=== PATIENT | male | born 1935 | race Caucasian/White ===

== ENCOUNTER 2016-12-23 11:00 | Day surgery (SDC) | payer MEDICARE ==
[~2016-12-23 11:00] MED LIST: CLINDAMYCIN-D5W 900 MG/50 ML*** 900 MG/50 ML BAG IV SCH; KEFZOL 1 GM ONE; Lactated Ringers 0 ML IV ONE; Lactated Ringers 1,000 ML IV ONE; Lactated Ringers 1,000 ML IV SCH; Sensorcaine 0.25% 10 ML ONE
[2016-12-23] MEDS ORDERED: DILAUDID 2 MG INJECTION IV ONE (11:01)
[2016-12-23] MEDS ORDERED: Ephedrine Sulfate 50 MG/ML IV ONE (11:01)
[2016-12-23] MEDS ORDERED: DIPRIVAN 200 MG/20 ML IV ONE (11:01)
[2016-12-23] MEDS ORDERED: TORAdol 30 mg Injection IV ONE (11:01)
[2016-12-23] MEDS ORDERED: BRIDION 200MG/2ML IV ONE (11:01)
[2016-12-23] MEDS ORDERED: SUBLIMAZE 100 MCG/2 ML IV ONE (11:01)
[2016-12-23] MEDS ORDERED: Zemuron 100 MG/10 ML IV ONE (11:01)
[2016-12-23] MEDS ORDERED: Decadron 4 MG INJ IV ONE (11:01)
[2016-12-23] MEDS ORDERED: Zofran 4 MG/2 ML VIAL IV ONE (11:01)
--- NOTE | 2016-12-23 11:22 | HP ---
DATE OF SURGERY: 12/23/2016 ADMISSION DIAGNOSIS: Right inguinal hernia. ANTICIPATED PROCEDURE: Large right inguinal hernia repair. HISTORY OF PRESENT ILLNESS: The patient has a very large symptomatic right inguinal hernia and presents for repair. PAST MEDICAL HISTORY: ALLERGIES: NONE. MEDICATIONS: Amlodipine, rosuvastatin, metoprolol, valsartan. PAST SURGICAL HISTORY: None recent. SOCIAL HISTORY: Negative. FAMILY HISTORY: Negative. REVIEW OF SYSTEMS: Hyperlipidemia, hypertension, coronary artery disease. PHYSICAL EXAMINATION: VITAL SIGNS: Normal. CHEST: Clear. COR: Regular. ABDOMEN: Right inguinal hernia large. IMPRESSION: Large right inguinal hernia. PLAN: Repair.
[2016-12-23] MEDS ORDERED: SUBLIMAZE 100 MCG/2 ML ONE (14:51)
[2016-12-23 17:00] VITALS: O2SAT 92
[2016-12-23 17:02] VITALS: BP 110/71; PULSE 67
--- NOTE | 2016-12-24 12:20 | OP ---
SURGERY DATE/TIME: 12/23/2016 1345 PREOPERATIVE DIAGNOSIS: Massive right inguinal hernia. POSTOPERATIVE DIAGNOSIS: Massive right inguinal hernia. PROCEDURE: Right inguinal herniorrhaphy with mesh. SURGEON: Nate Jara M.D. ANESTHESIA: General. COMPLICATIONS: None. CONDITION: Stable. INDICATION: A symptomatic large right inguinal hernia. DESCRIPTION OF PROCEDURE: Taken to surgery. General anesthetic. Routine prep and drape. Curvilinear incision. 0.25% Marcaine. External oblique opened. 14 inches of small bowel was present. It was reduced back to the abdomen with Trendelenburg position. High ligation of the sac with 0 Prolene. Portions of the sac were removed as possible. It was taken off the testicle. There was a medium sized hydrocele which was opened up and decompressed. The cord was satisfactory. The cord had been skeletonized. The floor was repaired in a Koko's-like fashion with a preformed mesh. The internal ring was one clamp tight. Hemostasis satisfactory. Repair appeared satisfactory. Cord laid back in position. Testicle was in the scrotum. External oblique closed with 0 Vicryl. Fede fascia closed with 2-0 Vicryl. Skin closed with anthony. Sterile dressing applied. The patient tolerated the procedure satisfactorily.
== END 2016-12-23 16:55 | disposition home or self-care (01) ==
LOC: SDC 11:00
PROVIDERS: ATTEND Surgery
PROC: 0YU50JZ Supplement Right Inguinal Region with Synthetic Substitute, Open Approach (ICD-10-PCS; principal; 2016-12-23)
DX: K40.90 Unilateral inguinal hernia, without obstruction or gangrene, not specified as recurrent (principal); E78.5 Hyperlipidemia, unspecified; I10 Essential (primary) hypertension; I25.10 Atherosclerotic heart disease of native coronary artery without angina pectoris; Z79.899 Other long term (current) drug therapy
CPT/HCPCS: 00830; 36415; 64425; 76942; 99100; J0690; J1100; J1170; J1885; J2405; J2704; J3010

== ENCOUNTER 2016-12-24 21:01 | Emergency (ER) | payer MEDICARE ==
[2016-12-24 21:10] VITALS: PULSE 72
--- NOTE | 2016-12-24 21:33 | ERPHSYRPT ---
- History of Present Illness Time Seen by Provider: 12/24/16 21:09 Source: patient, family (daughter who is cardiac nurse in [place]) Patient Subjective Stated Complaint: had hernia repair on was concerned he could feel it bleeding out and thought it had opened Triage Nursing Assessment: pt alert nad orientedx3, skin warm dry and intact, lacerations is securely closed at present time with daxa, examined with doctor some drainage noted, cleaned and chaged dressing added additional 4x4 for drainage. no other issues noted Physician History: CC: wound bleeding Hx: 81 y/o male patient of Dr Jara. He had right inguinal hernia repair yesterday. He has done well. No fever. No vomiting. Normal urination. Ate well today. Not much pain. While going to bed he felt some bleeding from the right inguinal wound. Dressing was saturated so family brought him to ER. Daughter reports abdomen a little more full than before. No real pain. No BM. Not passing much gas. 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) Severity: mild Allergies/Adverse Reactions: amoxicillin Allergy (Unknown, Verified 12/23/16 11:46) doxycycline Allergy (Unknown, Verified 12/23/16 11:46) morphine Adverse Reaction (Mild, Verified 12/23/16 11:45) hallucinating simvastatin [From Zocor] Adverse Reaction (Mild, Verified 12/23/16 11:46) muscle pain muscle pain pravastatin Adverse Reaction (Verified 12/23/16 11:46) muscle pain muscle pain Home Medications: Acetaminophen 325 mg [Tylenol 325 mg] 325 mg PO DAILY 12/21/16 [History] Amlodipine Besylate 5 mg [Norvasc 5 mg] 5 mg PO DAILY 12/21/16 [History] Aspirin 325 mg PO DAILY 12/21/16 [History] Bicalutamide [Casodex] 50 mg PO DAILY 12/21/16 [History] Metoprolol Tartrate 25 mg [Lopressor 25MG Tab] 25 mg PO DAILY 12/21/16 [ History] PANTOPRAZOLE 40 mg Tablet [Protonix 40MG Tablet] 40 mg PO DAILY 12/21/16 [ History] Rosuvastatin Calcium 10 mg PO HS 12/21/16 [History] Valsartan/Hydrochlorothiazide [Valsartan-Hctz 160-12.5 mg Tab] 1 tablet PO DAILY 12/21/16 [History] Sennosides [Senna Lax] 8.6 mg PO UD 12/23/16 [History] Hx Tetanus, Diphtheria Vaccination/Date Given: Yes Hx Influenza Vaccination/Date Given: Yes Hx Pneumococcal Vaccination/Date Given: Yes Immunizations Up to Date: Yes - Review of Systems Constitutional: No Fever, No Chills Eyes: No Symptoms Ears, Nose, & Throat: No Symptoms Respiratory: No Cough, No Dyspnea Cardiac: No Chest Pain Abdominal/Gastrointestinal: Abdominal Pain (mild post op), No Nausea, No Vomiting, No Diarrhea Genitourinary Symptoms: No Dysuria Musculoskeletal: No Back Pain Skin: No Rash Neurological: No Headache All Other Systems: Reviewed and Negative - Past Medical History Pertinent Past Medical History: No Neurological History: No Pertinent History ENT History: No Pertinent History Cardiac History: Coronary Artery Disease, High Cholesterol, Hypertension, Myocardial Infarction ([place]) Respiratory History: No Pertinent History Endocrine Medical History: No Pertinent History Musculoskeletal History: Arthritis GI Medical History: GERD History: No Pertinent History Psycho-Social History: No Pertinent History Male Reproductive Disorders: Prostate Cancer, Prostate Problems - Past Surgical History Past Surgical History: Yes Neuro Surgical History: No Pertinent History Cardiac: CABG, Cardiac Catheterization, Vascular Surgery Respiratory: No Pertinent History Gastrointestinal: Hernia Repair (right inguinal) Genitourinary: No Pertinent History Musculoskeletal: No Pertinent History Male Surgical History: Prostate Surgery - Social History Smoking Status: Never smoker Drug Use: none Patient Lives Alone: No - Nursing Vital Signs Nursing Vital Signs: Initial Vital Signs Temperature 97.4 F 12/24/16 21:04 Pulse Rate 72 12/24/16 21:04 Respiratory Rate 20 12/24/16 21:04 Blood Pressure 126/65 12/24/16 21:04 O2 Sat by Pulse Oximetry 96 12/24/16 21:04 Pain Scale Pain Intensity 0 - Physical Exam General Appearance: alert, other (pleasant elderly man) Eye Exam: PERRL/EOMI Ears, Nose, Throat Exam: normal ENT inspection, moist mucous membranes Neck Exam: normal inspection, non-tender, supple Respiratory Exam: normal breath sounds Cardiovascular Exam: regular rate/rhythm Gastrointestinal/Abdomen Exam: soft, other (full with mild hypertympanic distention, no point tenderness, no guarding. The right inguinal incision was inspected. Daxa intact.) Male Genitalia Exam: normal genitalia Neurologic Exam: alert, oriented x 3, cooperative, sensation nml, No motor deficits Skin Exam: warm, dry SpO2 Interpretation: normal SpO2: 96 Oxygen Delivery: Room Air - Course Nursing assessment & vital signs reviewed: Yes Ordered Tests: Active Orders 24 hr Category Date Time Status Wound Care STAT Care 12/24/16 21:09 Active - Progress Progress Note: 12/24/16 21:33 Wound inspected. Redressed. Patient seems to be doing well. May have a little post op ileus. Will limit norco. Use glycerin chip tomorrow if needed. [place] diet. Wound instr given. Spoke to Dr Quintin Jara. Counseled pt/family regarding: diagnosis, need for follow-up - Departure Time of Disposition: 21:34 Departure Disposition: Home Clinical Impression: H/O right inguinal hernia repair, post operative bleeding wound Condition: Stable Critical Care Time: No Referrals: BUNNY RICHARDSON MD [Primary Care Provider] - SHAYY JARA [ACTIVE STAFF] - Instructions: Hernia Repair Additional Instructions: [place] diet. Return for heavy bleeding, increased abdominal pain, vomiting, fever, or concerns. Call Dr Jara Tuesday with report or as needed.
[2016-12-24 22:05] VITALS: BP 118/70; O2SAT 97
== END 2016-12-24 22:00 | disposition home or self-care (01) ==
LOC: ED 21:01
DX: K91.841 Postprocedural hemorrhage of a digestive system organ or structure following other procedure (principal); Z48.01 Encounter for change or removal of surgical wound dressing
CPT/HCPCS: 99282

== ENCOUNTER 2017-01-25 10:59 | Emergency (ER) | payer MEDICARE ==
[2017-01-25] MEDS ORDERED: Sodium Chloride 0.9% 1000 ML 1,000 ML IV STA (11:11)
--- NOTE | 2017-01-25 11:16 | ERPHSYRPT ---
- History of Present Illness Time Seen by Provider: 01/25/17 11:13 Historian: patient Exam Limitations: no limitations Physician History: mild to mod diarrhea for 10days, no blood, no injury, no pain, hx right inguinal hernia surgery 12/23/16 Dr Jara, no fever, no NV, not dm, not on blood thinners, hx gout and htn Allergies/Adverse Reactions: amoxicillin Allergy (Unknown, Verified 12/23/16 11:46) doxycycline Allergy (Unknown, Verified 12/23/16 11:46) morphine Adverse Reaction (Mild, Verified 12/23/16 11:45) hallucinating simvastatin [From Zocor] Adverse Reaction (Mild, Verified 12/23/16 11:46) muscle pain muscle pain pravastatin Adverse Reaction (Verified 12/23/16 11:46) muscle pain muscle pain Home Medications: Aspirin 325 mg PO DAILY 12/21/16 [History] Bicalutamide [Casodex] 50 mg PO DAILY 12/21/16 [History] Metoprolol Tartrate 25 mg [Lopressor 25MG Tab] 50 mg PO DAILY 12/21/16 [ History] PANTOPRAZOLE 40 mg Tablet [Protonix 40MG Tablet] 40 mg PO DAILY 12/21/16 [ History] Rosuvastatin Calcium 10 mg PO HS 12/21/16 [History] Valsartan/Hydrochlorothiazide [Valsartan-Hctz 160-12.5 mg Tab] 1 tablet PO DAILY 12/21/16 [History] Amlodipine Besylate 5 mg [Norvasc 5 mg] 5 mg PO DAILY 01/25/17 [History] Hx Tetanus, Diphtheria Vaccination/Date Given: Yes Hx Influenza Vaccination/Date Given: Yes Hx Pneumococcal Vaccination/Date Given: Yes - Review of Systems Constitutional: Fatigue, No Fever Eyes: No Symptoms Ears, Nose, & Throat: No Symptoms Respiratory: No Symptoms Cardiac: No Symptoms Abdominal/Gastrointestinal: Diarrhea, No Abdominal Pain, No Vomiting Musculoskeletal: No Symptoms Skin: No Symptoms Neurological: No Dizziness - Past Medical History Pertinent Past Medical History: No Neurological History: No Pertinent History ENT History: No Pertinent History Cardiac History: Coronary Artery Disease, High Cholesterol, Hypertension, Myocardial Infarction ([place]) Respiratory History: No Pertinent History Endocrine Medical History: No Pertinent History Musculoskeletal History: Arthritis GI Medical History: GERD History: No Pertinent History Psycho-Social History: No Pertinent History Male Reproductive Disorders: Prostate Cancer, Prostate Problems - Past Surgical History Past Surgical History: Yes Neuro Surgical History: No Pertinent History Cardiac: CABG, Cardiac Catheterization, Vascular Surgery Respiratory: No Pertinent History Gastrointestinal: Hernia Repair (right inguinal) Genitourinary: No Pertinent History Musculoskeletal: No Pertinent History Male Surgical History: Prostate Surgery - Social History Smoking Status: Never smoker Drug Use: none Patient Lives Alone: No - Nursing Vital Signs Nursing Vital Signs: Initial Vital Signs Temperature 98.0 F 01/25/17 11:04 Pulse Rate 72 01/25/17 11:04 Respiratory Rate 20 01/25/17 11:04 Blood Pressure 129/56 01/25/17 11:04 O2 Sat by Pulse Oximetry 98 01/25/17 11:04 Pain Scale Pain Intensity 0 - Physical Exam General Appearance: no apparent distress Eye Exam: PERRL/EOMI Ears, Nose, Throat Exam: pharynx normal Neck Exam: normal inspection Respiratory Exam: normal breath sounds Cardiovascular Exam: regular rate/rhythm Gastrointestinal/Abdomen Exam: soft, No tenderness, No distention Extremity Exam: normal inspection Neurologic Exam: alert, oriented x 3, cooperative Skin Exam: normal color, warm, dry - Course Nursing assessment & vital signs reviewed: Yes - CT Exams Abdomen/Pelvis CT Interpretation: Discussed w/radiologist, Other (diffuse colitis w/o obstruction, +right hydrocele w/ fluid) Ordered Tests: Active Orders 24 hr Category Date Time Status IV Insertion STAT Care 01/25/17 11:11 Active ABDOMEN AND PELVIS W/0 CONTRAS [CT] Stat Exams 01/25/17 11:12 Completed CBC W DIFF Stat Lab 01/25/17 11:15 Completed CMP Stat Lab 01/25/17 11:15 Completed CULTURE,URINE Stat Lab 01/25/17 11:50 Received LIPASE Stat Lab 01/25/17 11:15 Completed Lactic Acid Stat Lab 01/25/17 11:20 Results Manual Differential NC Stat Lab 01/25/17 11:15 Completed UA W/ MICROSCOPIC Stat Lab 01/25/17 11:50 Completed Medication Summary Discontinued Medications Generic Name Dose Route Start Last Admin Trade Name Freq PRN Reason Stop Dose Admin Sodium Chloride 1,000 mls @ 999 mls/hr 01/25/17 11:11 01/25/17 11:21 Sodium Chloride 0.9% 1000 Ml IV 01/25/17 12:11 999 mls/hr .Q1H1M STA Administration Sodium Chloride Confirm 01/25/17 11:17 Sodium Chloride 0.9% 1000 Ml Administered 01/25/17 11:18 Dose 1,000 mls @ ud .ROUTE .STK-MED ONE Lab/Rad Data: Laboratory Result Diagrams 01/25/17 11:15 01/25/17 11:15 Laboratory Results 01/25/17 01/25/17 01/25/17 Range/Units 11:50 11:20 11:15 WBC (4.0-10.5) K/mm3 RBC (4.1-5.6) M/mm3 Hgb (12.5-18.0) gm/dl Hct (42-50) % MCV (78-100) fl MCH (26-32) pg MCHC (32-36) g/dl RDW (11.5-14.0) % Plt Count (150-450) K/mm3 MPV (6-9.5) fl Segmented Neutrophils (36.-66.) % Lymphocytes (Manual) (24-44) % Monocytes (Manual) (0.0-12.0) % Eosinophils (Manual) (0.00-3.0) % Differential Comment Platelet Estimate (NORMAL) Poikilocytosis Anisocytosis Sodium 141 (136-145) mEq/L Potassium 3.6 (3.5-5.1) mEq/L Chloride 104 (98-107) mEq/L Carbon Dioxide 23.8 (21-32) mEq/L Anion Gap 16.9 H (5-15) MEQ/L BUN 27 H (9-20) mg/dL Creatinine 1.56 H (0.55-1.30) mg/dl Estimated GFR 45 ML/MIN Glucose 96 (70-110) MG/DL Lactic Acid 2.2 H (0.4-2.0) Calcium 9.0 (8.5-10.1) mg/dL Total Bilirubin 0.40 (0.2-1.0) mg/dL AST 25 (15-37) U/L ALT 20 (12-78) U/L Alkaline Phosphatase 59 (46-116) U/L Serum Total Protein 6.9 (6.4-8.2) gm/dL Albumin 3.1 L (3.4-5.0) g/dL Lipase 84 (73-393) U/L Ur Collection Type VOID Urine Color YELLOW (YELLOW) Urine Appearance CLEAR (CLEAR) Urine pH 5.0 (5-6) Ur Specific Umbarger 1.015 (1.005-1.025) Urine Protein NEGATIVE (Negative) Urine Ketones NEGATIVE (NEGATIVE) Urine Blood 250 (0-5) Hank/ul Urine Nitrite NEGATIVE (NEGATIVE) Urine Bilirubin NEGATIVE (NEGATIVE) Urine Urobilinogen NORMAL (0-1) mg/dL Ur Leukocyte Esterase TRACE (NEGATIVE) Urine Microscopic RBC 2-5 (0-2) /HPF Urine Microscopic WBC 5-10 (0-5) /HPF Ur Epithelial Cells FEW (FEW) /HPF Urine Bacteria MODERATE (NEGATIVE) /HPF Urine Mucus MODERATE (NEGATIVE) /HPF Urine Culture Reflexed YES (NO) Urine Glucose NEGATIVE (NEGATIVE) mg/dL Specimen Received 01/25/17 1155 01/25/17 Range/Units 11:15 WBC 8.2 (4.0-10.5) K/mm3 RBC 3.67 L (4.1-5.6) M/mm3 Hgb 11.5 L (12.5-18.0) gm/dl Hct 35.0 L (42-50) % MCV 95.4 (78-100) fl MCH 31.3 (26-32) pg MCHC 32.9 (32-36) g/dl RDW 14.6 H (11.5-14.0) % Plt Count 247 (150-450) K/mm3 MPV 10.4 H (6-9.5) fl Segmented Neutrophils 58 (36.-66.) % Lymphocytes (Manual) 20 L (24-44) % Monocytes (Manual) 16 H (0.0-12.0) % Eosinophils (Manual) 6 H (0.00-3.0) % Differential Comment ABNORMAL Platelet Estimate NORMAL (NORMAL) Poikilocytosis 1+ Anisocytosis 1+ Sodium (136-145) mEq/L Potassium (3.5-5.1) mEq/L Chloride (98-107) mEq/L Carbon Dioxide (21-32) mEq/L Anion Gap (5-15) MEQ/L BUN (9-20) mg/dL Creatinine (0.55-1.30) mg/dl Estimated GFR ML/MIN Glucose (70-110) MG/DL Lactic Acid (0.4-2.0) Calcium (8.5-10.1) mg/dL Total Bilirubin (0.2-1.0) mg/dL AST (15-37) U/L ALT (12-78) U/L Alkaline Phosphatase (46-116) U/L Serum Total Protein (6.4-8.2) gm/dL Albumin (3.4-5.0) g/dL Lipase (73-393) U/L Ur Collection Type Urine Color (YELLOW) Urine Appearance (CLEAR) Urine pH (5-6) Ur Specific Umbarger (1.005-1.025) Urine Protein (Negative) Urine Ketones (NEGATIVE) Urine Blood (0-5) Hank/ul Urine Nitrite (NEGATIVE) Urine Bilirubin (NEGATIVE) Urine Urobilinogen (0-1) mg/dL Ur Leukocyte Esterase (NEGATIVE) Urine Microscopic RBC (0-2) /HPF Urine Microscopic WBC (0-5) /HPF Ur Epithelial Cells (FEW) /HPF Urine Bacteria (NEGATIVE) /HPF Urine Mucus (NEGATIVE) /HPF Urine Culture Reflexed (NO) Urine Glucose (NEGATIVE) mg/dL Specimen Received - Progress Progress: improved Progress Note: 01/25/17 12:45 stool sample and bmp tomorrow for Dr Bowen return if worse oral fluids kapil Discussed with : Andrés Will see patient in: office Counseled pt/family regarding: lab results, diagnosis, need for follow-up, rad results - Departure Time of Disposition: 12:46 Departure Disposition: Home Clinical Impression: Colitis UTI (urinary tract infection) Qualifiers: Urinary tract infection type: acute cystitis Hematuria presence: with hematuria Qualified Code(s): N30.01 - Acute cystitis with hematuria Condition: Stable Critical Care Time: No Referrals: BUNNY RICHARDSON MD [Primary Care Provider] - Instructions: Diarrhea and Traveler's Diarrhea -- Adult Additional Instructions: oral fluids, return if worse, see Kapil Howard
[2017-01-25 11:17] VITALS: O2SAT 98
[2017-01-25] MEDS ORDERED: Sodium Chloride 0.9% 1000 ML 1,000 ML ONE (11:17)
[2017-01-25 11:23] LABS: Lactic Acid 2.2 (0.4-2.0)
[2017-01-25 11:50] LABS: Mean Cell Volume 95.4 fl (78-100); Mean Corpuscular Hemoglobin 31.3 pg (26-32); Mean Platelet Volume 10.4 fl (6-9.5); Platelet Count 247 K/mm3 (150-450); Red Blood Count 3.67 M/mm3 (4.1-5.6); Red Cell Distribution Width 14.6 % (11.5-14.0); White Blood Count 8.2 K/mm3 (4.0-10.5)
[2017-01-25 12:06] LABS: ALBUMIN 3.1 g/dL (3.4-5.0); ANION GAP 16.9 MEQ/L (5-15); BILIRUBIN,TOTAL 0.4 mg/dL (0.2-1.0); Carbon Dioxide 23.8 mEq/L (21-32); Potassium 3.6 mEq/L (3.5-5.1); Total Protein 6.9 gm/dL (6.4-8.2)
[2017-01-25 12:08] LABS: ADD URINE CULTURE? YES (NO); Bacteria MODERATE /HPF (NEGATIVE); Bilirubin NEGATIVE (NEGATIVE); Blood 250 Ery/ul (0-5); COMPLETE URINE MICROSCOPIC? YES; Collection Type VOID; Epithelial Cells FEW /HPF (FEW); Glucose NEGATIVE (NEGATIVE); Leukocyte Esterase TRACE (NEGATIVE); Mucus MODERATE /HPF (NEGATIVE)
[2017-01-25 12:24] LABS: ANISOCYTOSIS 1+; Eosinophil 6 % (0.00-3.0); Platelet Estimate NORMAL (NORMAL); Poikilocytosis 1+; Total Cells Counted 100
--- NOTE | 2017-01-25 12:29 | XRAY ---
Indication: Diarrhea. History of prostate cancer. Multiple contiguous axial images obtained through the abdomen and pelvis without contrast as ordered. Comparison: None. Lung bases demonstrate minimal bibasilar dependent atelectasis. No infiltrate or effusion. Heart is not enlarged. Small hiatal hernia. Noncontrasted stomach and bowel loops appear nonobstructed. Appendix not seen. There is diffuse colonic wall thickening including the rectum with minimal pericolonic stranding favoring colitis. No free fluid/air. A few bilateral renal cysts, largest right kidney measuring 4.7 cm. Tiny 2 mm gallstone. Urinary bladder is normally distended with mild circumferential wall thickening and minimal stranding possibly cystitis. Remaining liver, gallbladder, pancreas, spleen, adrenal glands, kidneys, ureters, and bladder appear unremarkable for noncontrast exam. Moderate aortoiliac calcifications and its major branches without AAA. Osseous structures intact with moderate degenerative changes throughout the spine. Small fluid-filled right inguinal hernia with large right scrotal hydrocele. Impression: 1. Diffuse colitis. 2. Urinary bladder wall thickening with minimal stranding. Rule out cystitis. 3. Fluid-filled right inguinal hernia with large right scrotal hydrocele. 4. Incidental small hiatal hernia, bilateral renal cysts, and tiny gallstone. CT DI 33.16
[2017-01-25 13:05] VITALS: BP 134/67; PULSE 63
== END 2017-01-25 13:06 | disposition home or self-care (01) ==
LOC: ED 10:59
DX: K52.9 Noninfective gastroenteritis and colitis, unspecified (principal); N30.01 Acute cystitis with hematuria; I25.10 Atherosclerotic heart disease of native coronary artery without angina pectoris; E78.00 Pure hypercholesterolemia, unspecified; I10 Essential (primary) hypertension; I25.2 Old myocardial infarction; Z95.1 Presence of aortocoronary bypass graft
CPT/HCPCS: 36000; 36415; 74176; 80053; 81000; 83605; 83690; 85025; 87086; 96360; 99284

== ENCOUNTER 2018-01-07 13:44 | Emergency (ER) | payer MEDICARE ==
[2018-01-07] MEDS ORDERED: XYLOCAINE 1% HCL 20 ML MDV ×2 (14:29→14:31)
[2018-01-07] MEDS ORDERED: Adacel Vial IM (15:41)
[2018-01-07] MEDS: Adacel Vial IM (15:46)
[2018-01-07] MEDS: XYLOCAINE 1% HCL 20 ML MDV IJ (15:47)
== END 2018-01-07 16:18 | disposition home or self-care (01) ==
LOC: ED 13:44
CPT/HCPCS: 70450; 90471; 90715; 96372

== ENCOUNTER 2020-05-19 20:46 | Observation (INO) | payer MEDICARE ==
[2020-05-19 21:53] LABS: Hemoglobin 11.3 gm/dl (12.5-18.0); Mean Cell Volume 97.5 fl (78-100); Mean Corpuscular Hemoglobin 31.5 pg (26-32); Mean Corpuscular Hgb Concent. 32.3 g/dl (32-36); Mean Platelet Volume 10.1 fl (7.5-11.0); Platelet Count 350 K/mm3 (150-450); Red Blood Count 3.59 M/mm3 (4.1-5.6); Red Cell Distribution Width 18.3 % (11.5-14.0); White Blood Count 11.4 K/mm3 (4.0-10.5)
[2020-05-19 21:56] LABS: INFLUENZA A NEGATIVE (NEGATIVE); INFLUENZA B NEGATIVE (NEGATIVE)
[2020-05-19 21:57] LABS: ISTAT CREA 1.9 mg/dL (0.6-1.3)
[2020-05-19 22:30] LABS: Appearance TURBID (CLEAR); Bacteria MODERATE /HPF (NEGATIVE); Bilirubin NEGATIVE (NEGATIVE); Blood LARGE Ery/ul (0-5); Glucose NEGATIVE (NEGATIVE); Ketones NEGATIVE (NEGATIVE); Leukocyte Esterase LARGE (NEGATIVE); Mucus SLIGHT /HPF (NEGATIVE); Nitrite NEGATIVE (NEGATIVE); Non-Squamous Epithelial Cells RARE /HPF (FEW); Protein,Urine Dip 100 (Negative); Specific Gravity 1.012 (1.005-1.025); Urobilinogen NEGATIVE mg/dL (0-1); WBC >100 /HPF (0-5)
[2020-05-19 22:31] LABS: RBC >101 /HPF (0-2)
[2020-05-19 22:34] LABS: BAND 7 % (0.0-2.0); Basophil 1 % (0.0-1.0); Lymphocytes 10 % (24-44); Monocyte 9 % (0.0-12.0); Neutrophils 73 % (36.-66.); Total Cells Counted 100
[2020-05-19 22:35] LABS: Platelet Estimate NORMAL (NORMAL)
[2020-05-19 22:36] LABS: Ovalocytes 1+
--- NOTE | 2020-05-20 00:03 | ERPHSYRPT ---
- History of Present Illness Source: patient Patient Subjective Stated Complaint: Patient states that day evening, he started getting chills and feeling like he had a fever. Patient states that since then, he feels like he has no energy and weak. Last night, the patient states that he began dry heaving and saw some blood in urine afterwards. The patient came to [facility] ED because he didn't feel any better and decided that he should be seen. Triage Nursing Assessment: The patient is A&O, Physician History: 85 yo wm w chills/subjective fever x 1day. Pt denies co ugh/coryza/vomiting/diarrhea but has had mild hematuria wo dysuria. Timing/Duration: yesterday Fever Severity: mild Associated Symptoms: No abdominal pain, No chest pain, No confusion, No cough, No diaphoresis, No headache, No muscle aches, No nausea/vomiting, No rash, No rhinorrhea, No shortness of breath, No sore throat, No stiff neck, No syncope, No weakness Allergies/Adverse Reactions: amoxicillin Allergy (Unknown, Verified 01/07/18 13:59) doxycycline Allergy (Unknown, Verified 01/07/18 13:59) morphine Adverse Reaction (Mild, Verified 01/07/18 13:59) hallucinating simvastatin [From Zocor] Adverse Reaction (Mild, Verified 01/07/18 13:59) muscle pain muscle pain pravastatin Adverse Reaction (Verified 01/07/18 13:59) muscle pain muscle pain Home Medications: Aspirin 325 mg PO DAILY 12/21/16 [History] Bicalutamide [Casodex] 50 mg PO DAILY 12/21/16 [History] Metoprolol Tartrate 25 mg [Lopressor 25MG Tab] 25 mg PO DAILY 12/21/16 [History] Rosuvastatin Calcium 10 mg PO HS 12/21/16 [History] Amlodipine Besylate 5 mg [Norvasc 5 mg] 5 mg PO DAILY 01/25/17 [History] Allopurinol 100 mg [Zyloprim 100 mg] 100 mg PO DAILY 05/19/20 [History] Losartan/Hydrochlorothiazide [Losartan-Hctz 100-25 mg Tab] 0.5 tab PO DAILY 05/19/20 [History] Hx Tetanus, Diphtheria Vaccination/Date Given: No (unknown) Hx Influenza Vaccination/Date Given: No Hx Pneumococcal Vaccination/Date Given: No Immunizations Up to Date: Yes Travel Risk - International Travel Have you traveled outside of the country in past 3 weeks: No - Coronavirus Screening Are you exhibiting any of the following symptoms?: Yes Symptoms: Fever, Headaches/Body Aches/Fatigue Close contact with a COVID-19 positive Pt in past 14-21 Days: No - Review of Systems Constitutional: No Symptoms, Fever, Chills, Lethargy Eyes: No Symptoms Ears, Nose, & Throat: No Symptoms Respiratory: No Symptoms Cardiac: No Symptoms Abdominal/Gastrointestinal: No Symptoms, Nausea Genitourinary Symptoms: No Symptoms, Hematuria Musculoskeletal: No Symptoms, Myalgias Skin: No Symptoms Neurological: No Symptoms Psychological: No Symptoms Endocrine: No Symptoms Hematologic/Lymphatic: No Symptoms Immunological/Allergic: No Symptoms - Past Medical History Pertinent Past Medical History: No Neurological History: No Pertinent History ENT History: No Pertinent History Cardiac History: Coronary Artery Disease, High Cholesterol, Hypertension Respiratory History: No Pertinent History Endocrine Medical History: No Pertinent History Musculoskeletal History: No Pertinent History GI Medical History: GERD, Hernia History: No Pertinent History Psycho-Social History: No Pertinent History Male Reproductive Disorders: Prostate Cancer, Prostate Problems Other Medical History: 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 CABG X 3 IN 2006. INGUINAL HERNIA REPAIR 2016 - Past Surgical History Past Surgical History: Yes Neuro Surgical History: No Pertinent History Cardiac: CABG, Cardiac Catheterization, Vascular Surgery Respiratory: No Pertinent History Gastrointestinal: Hernia Repair Genitourinary: No Pertinent History Musculoskeletal: No Pertinent History Male Surgical History: Prostate Surgery - Social History Smoking Status: Former smoker Exposure to second hand smoke: No Drug Use: none Patient Lives Alone: Yes Significant Family History: no pertinent family hx - Nursing Vital Signs Nursing Vital Signs: Initial Vital Signs Temperature 100.1 F 05/19/20 20:48 Pulse Rate 84 05/19/20 20:48 Respiratory Rate 18 05/19/20 20:48 Blood Pressure 116/48 05/19/20 20:48 O2 Sat by Pulse Oximetry 94 L 05/19/20 20:48 Pain Scale Pain Intensity 0 - Physical Exam General Appearance: no apparent distress Eye Exam: PERRL/EOMI, eyes nml inspection ENT Exam: normal ENT inspection, no apparent trauma, hearing grossly normal, TMs normal, pharynx normal, No nasal congestion, No nasal drainage Neck Exam: normal inspection, non-tender, supple, full range of motion, No lym phadenopathy (L), No Brudzinski's sign, No Kernig's sign Respiratory Exam: normal breath sounds, lungs clear, no respiratory distress Cardiovascular/Chest Exam: normal heart sounds, regular rate/rhythm, normal peripheral pulses, No murmur Gastrointestinal/Abdominal Exam: soft, non tender, no distention, no mass Extremity Exam: non-tender, normal range of motion, normal inspection, normal capillary refill Neurologic Exam: alert, oriented x 3, cooperative, 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 as tested, normal mood/affect, nml cerebellar function, nml station & gait, sensation nml, No motor deficits, No sensory deficit Skin Exam: normal color, warm, dry, No rash Lymphatic: No adenopathy SpO2 Interpretation: normal SpO2: 98 O2 Delivery: Room Air - Course Nursing assessment & vital signs reviewed: Yes - CT Exams Chest CT Interpretation: Tele-radiologist Report (4mm nodule LLL/CAD/cholelithiasis/Prominence L renal collecting system) Ordered Tests: Active Orders 24 hr Category Date Time Status CHEST WITHOUT CONTRAST [CT] Stat Exams 05/19/20 21:15 Taken CBC W DIFF Stat Lab 05/19/20 21:10 Completed CULTURE,URINE Stat Lab 05/19/20 22:15 Received INFLUENZA A+B VALERIE Stat Lab 05/19/20 21:10 Completed Lactic Acid Stat Lab 05/19/20 21:14 Completed Manual Differential NC Stat Lab 05/19/20 21:10 Completed UA W/RFX UR CULTURE Stat Lab 05/19/20 22:15 Completed Lab/Rad Data: Laboratory Result Diagrams 05/19/20 21:10 05/19/20 21:10 Laboratory Results 05/19/20 05/19/20 05/19/20 Range/Units 22:15 21:14 21:10 WBC (4.0-10.5) K/mm3 RBC (4.1-5.6) M/mm3 Hgb (12.5-18.0) gm/dl Hct (42-50) % MCV (78-100) fl MCH (26-32) pg MCHC (32-36) g/dl RDW (11.5-14.0) % Plt Count (150-450) K/mm3 MPV (7.5-11.0) fl Segmented Neutrophils (36.-66.) % Band Neutrophils (0.0-2.0) % Lymphocytes (Manual) (24-44) % Monocytes (Manual) (0.0-12.0) % Basophils (Manual) (0.0-1.0) % Platelet Estimate (NORMAL) RBC Morphology Ovalocytes Sodium Direct (138-146) mmol/L Potassium (3.5-4.9) mmol/L Chloride (98-109) mmol/L Carbon Dioxide (24-29) mmol/L Venous BUN (8-26) mg/dL Creatinine (0.6-1.3) mg/dL Glucose (70-105) mg/dL Lactic Acid 1.2 (0.4-2.0) Ionized Calcium (1.12-1.32) mmol/L Urine Color YELLOW (YELLOW) Urine Appearance TURBID (CLEAR) Urine pH 5.0 (5-6) Ur Specific [place] 1.012 (1.005-1.025) Urine Protein 100 (Negative) Urine Ketones NEGATIVE (NEGATIVE) Urine Blood LARGE (0-5) Hank/ul Urine Nitrite NEGATIVE (NEGATIVE) Urine Bilirubin NEGATIVE (NEGATIVE) Urine Urobilinogen NEGATIVE (0-1) mg/dL Ur Leukocyte Esterase LARGE (NEGATIVE) Urine WBC (Auto) >100 (0-5) /HPF Urine RBC (Auto) >101 (0-2) /HPF U Epithel Cells (Auto) NONE (FEW) /HPF Urine Bacteria (Auto) MODERATE (NEGATIVE) /HPF U Non-Squamous Epi Cells RARE (FEW) /HPF Urine Mucus (Auto) SLIGHT (NEGATIVE) /HPF Urine Culture Reflexed YES (NO) Urine Glucose NEGATIVE (NEGATIVE) mg/dL Influenza Type A Ag NEGATIVE (NEGATIVE) Influenza Type B Ag NEGATIVE (NEGATIVE) 05/19/20 05/19/20 Range/Units 21:10 21:10 WBC 11.4 H (4.0-10.5) K/mm3 RBC 3.59 L (4.1-5.6) M/mm3 Hgb 11.3 L (12.5-18.0) gm/dl Hct 35.0 L (42-50) % MCV 97.5 (78-100) fl MCH 31.5 (26-32) pg MCHC 32.3 (32-36) g/dl RDW 18.3 H (11.5-14.0) % Plt Count 350 (150-450) K/mm3 MPV 10.1 (7.5-11.0) fl Segmented Neutrophils 73 H (36.-66.) % Band Neutrophils 7 H (0.0-2.0) % Lymphocytes (Manual) 10 L (24-44) % Monocytes (Manual) 9 (0.0-12.0) % Basophils (Manual) 1 (0.0-1.0) % Platelet Estimate NORMAL (NORMAL) RBC Morphology ABNORMAL Ovalocytes 1+ Sodium Direct 136 L (138-146) mmol/L Potassium 4.2 (3.5-4.9) mmol/L Chloride 100 (98-109) mmol/L Carbon Dioxide 24 (24-29) mmol/L Venous BUN 42 H (8-26) mg/dL Creatinine 1.9 H (0.6-1.3) mg/dL Glucose 139 H (70-105) mg/dL Lactic Acid (0.4-2.0) Ionized Calcium 1.14 (1.12-1.32) mmol/L Urine Color (YELLOW) Urine Appearance (CLEAR) Urine pH (5-6) Ur Specific [place] (1.005-1.025) Urine Protein (Negative) Urine Ketones (NEGATIVE) Urine Blood (0-5) Hank/ul Urine Nitrite (NEGATIVE) Urine Bilirubin (NEGATIVE) Urine Urobilinogen (0-1) mg/dL Ur Leukocyte Esterase (NEGATIVE) Urine WBC (Auto) (0-5) /HPF Urine RBC (Auto) (0-2) /HPF U Epithel Cells (Auto) (FEW) /HPF Urine Bacteria (Auto) (NEGATIVE) /HPF U Non-Squamous Epi Cells (FEW) /HPF Urine Mucus (Auto) (NEGATIVE) /HPF Urine Culture Reflexed (NO) Urine Glucose (NEGATIVE) mg/dL Influenza Type A Ag (NEGATIVE) Influenza Type B Ag (NEGATIVE) - Progress Progress Note: 05/20/20 00:[address] Gordillo Counseled pt/family regarding: lab results, diagnosis, rad results - Departure Departure Disposition: Observation Clinical Impression: UTI (urinary tract infection) Condition: Stable Critical Care Time: No Referrals: BUNNY RICHARDSON MD [Primary Care Provider] -
[2020-05-20] MEDS ORDERED: ROCEPHIN 1 Gm-D5w 50 ml Bag** 1 G/50 ML IVPB IV STA (00:04)
[2020-05-20] MEDS ORDERED: Zofran 4 MG/2 ML VIAL IV PRN (00:05)
[2020-05-20] MEDS ORDERED: ROCEPHIN 1 Gm-D5w 50 ml Bag** 1 G/50 ML IVPB IV ONE (00:36)
[2020-05-20] MEDS: Sodium Chloride 0.9% 1000 ML 1,000 ML IV SCH ×3 (00:41→19:16)
[2020-05-20 00:58] LABS: INFLUENZA A NEGATIVE (NEGATIVE); INFLUENZA B NEGATIVE (NEGATIVE); RESPIRATORY SYNCTIAL VIRUS NEGATIVE (Negative)
[2020-05-20 05:30] LABS: Hematocrit 39.4 % (42-50); Hemoglobin 12.8 gm/dl (12.5-18.0); Mean Cell Volume 96.8 fl (78-100); Mean Corpuscular Hemoglobin 31.4 pg (26-32); Mean Corpuscular Hgb Concent. 32.5 g/dl (32-36); Mean Platelet Volume 10.5 fl (7.5-11.0); Platelet Count 375 K/mm3 (150-450); Red Blood Count 4.07 M/mm3 (4.1-5.6); Red Cell Distribution Width 18.3 % (11.5-14.0); White Blood Count 11.8 K/mm3 (4.0-10.5)
[2020-05-20 05:49] LABS: ALBUMIN 3.9 g/dL (3.5-5.0); ANION GAP 15.8 MEQ/L (5-15); BILIRUBIN,TOTAL 0.9 mg/dL (0.2-1.3); Calcium 8.9 mg/dL (8.4-10.2); Creatinine 1 1.72 mg/dL (0.66-1.25); EST GLOMERULAR FILTRATION RATE 40.3 ML/MIN
--- NOTE | 2020-05-20 09:04 | PCM.HP ---
History of Present Illness - Chief Complaint Chief Complaint: UTI History of Present Illness: is a 84 year old male pt of Dr. Gilbert with gout, chronic renal insufficiency, tremor, and HTN who was admitted through ER with UTI. He was c/o 2d of feeling ill with dysuria and chills, with 1d of nausea/dry heaves and gross hematuria. He felt very weak on the day of admission but denies falling. Found to have large amount of blood in urine and >100 WBCs in the urine. This morning he is tolerating some po but mostly liquids. Up to the restroom. Was hoping to be discharged to home today. - Review of Systems Constitutional: Fever, Chills, Fatigue, Weakness Respiratory: Cough (mild, intermittent) Cardiac: Edema (LE in the day; resolves in the night) Genitourinary Symptoms: Dysuria, Hematuria Psychological: No Anxiety, No Depression, No Suicidal Ideations Medications & Allergies Home Medications: Home Medication List Aspirin 325 mg PO DAILY 12/21/16 [History Confirmed 05/20/20] Bicalutamide [Casodex] 50 mg PO DAILY 12/21/16 [History Confirmed 05/20/20] Metoprolol Tartrate 25 mg [Lopressor 25MG Tab] 25 mg PO BID 12/21/16 [History Confirmed 05/20/20] Rosuvastatin Calcium 10 mg PO HS 12/21/16 [History Confirmed 05/20/20] Amlodipine Besylate 5 mg [Norvasc 5 mg] 5 mg PO DAILY 01/25/17 [History Confirmed 05/20/20] Allopurinol 100 mg [Zyloprim 100 mg] 100 mg PO DAILY 05/19/20 [History Confirmed 05/20/20] Losartan/Hydrochlorothiazide [Losartan-Hctz 100-25 mg Tab] 0.5 tab PO DAILY 05/19/20 [History Confirmed 05/20/20] Allergies/Adverse Reactions: Allergies Allergy/AdvReac Type Severity Reaction Status Date / Time amoxicillin Allergy Unknown Verified 05/20/20 02:00 doxycycline Allergy Unknown Verified 05/20/20 02:00 morphine AdvReac Mild hallucinati Verified 05/20/20 02:00 ng simvastatin [From Zocor] AdvReac Mild muscle pain Verified 05/20/20 02:00 pravastatin AdvReac muscle pain Verified 05/20/20 02:00 - Past Medical History Past Medical History: No Neurological History: No Pertinent History ENT History: No Pertinent History Cardiac History: Coronary Artery Disease, High Cholesterol, Hypertension Respiratory History: No Pertinent History Endocrine Medical History: No Pertinent History Musculoskelatal History: No Pertinent History GI Medical History: GERD, Hernia History: No Pertinent History Pyscho-Social History: No Pertinent History Male Reproductive Disorders: Prostate Cancer, Prostate Problems Comment: PROSTATE CA 2006 TREATED WITH RADIATION. CABG X 3 IN 2006. INGUINAL HERNIA REPAIR 2017 - Past Surgical History Past Surgical History: Yes Neuro Surgical History: No Pertinent History Cardiac History: CABG, Cardiac Catheterization, Vascular Surgery Respiratory Surgery: No Pertinent History GI Surgical History: Hernia Repair Genitourinary Surgical Hx: No Pertinent History Musculskeletal Surgical Hx: No Pertinent History Male Surgical History: Prostate Surgery - Social History Smoking Status: Former smoker Exposure to second hand smoke: No Alcohol: Rarely Drug Use: none Significant Family History: no pertinent family hx - Physical Exam Vital Signs: Vital Signs - 24 hr Temp Pulse Resp BP Pulse Ox 05/20/20 08:01 95 05/20/20 07:26 99.3 F 85 18 160/74 96 05/20/20 04:00 99.7 F 82 26 H 142/68 95 05/20/20 02:54 95 05/20/20 01:58 99.1 F 91 H 20 135/61 97 05/20/20 01:04 86 166/83 97 05/20/20 00:12 98 05/20/20 00:10 97 05/20/20 00:00 76 20 122/69 96 05/19/20 23:00 78 20 137/60 95 05/19/20 22:05 80 18 128/55 98 05/19/20 20:48 100.1 F 84 18 116/48 94 L General Appearance: no apparent distress, alert Neurologic Exam: oriented x 3, cooperative Eye Exam: eyes nml inspection Ears, Nose, Throat Exam: moist mucous membranes Neck Exam: normal inspection, non-tender, No lymphadenopathy Respiratory Exam: normal breath sounds, lungs clear, No crackles/rales, No rhonchi, No wheezing Cardiovascular Exam: regular rate/rhythm, normal heart sounds, No murmur Gastrointestinal/Abdomen Exam: soft, normal bowel sounds, No tenderness, No distention, No mass, No guarding, No rebound Back Exam: normal inspection, No CVA tenderness, No rash Extremity Exam: swelling (trace pretibial edema bilat) Skin Exam: normal color, warm, dry, No rash Results - Labs Lab/Micro Results: Lab Results-Last 24 Hours 05/19/20 05/19/20 05/19/20 Range/Units 21:10 21:10 21:10 WBC 11.4 H (4.0-10.5) K/mm3 RBC 3.59 L (4.1-5.6) M/mm3 Hgb 11.3 L (12.5-18.0) gm/dl Hct 35.0 L (42-50) % MCV 97.5 (78-100) fl MCH 31.5 (26-32) pg MCHC 32.3 (32-36) g/dl RDW 18.3 H (11.5-14.0) % Plt Count 350 (150-450) K/mm3 MPV 10.1 (7.5-11.0) fl Segmented Neutrophils 73 H (36.-66.) % Band Neutrophils 7 H (0.0-2.0) % Lymphocytes (Manual) 10 L (24-44) % Monocytes (Manual) 9 (0.0-12.0) % Basophils (Manual) 1 (0.0-1.0) % Platelet Estimate NORMAL (NORMAL) RBC Morphology ABNORMAL Ovalocytes 1+ Sodium (137-145) mmol/L Sodium Direct 136 L (138-146) mmol/L Potassium 4.2 (3.5-4.9) mmol/L Chloride 100 (98-109) mmol/L Carbon Dioxide 24 (24-29) mmol/L Anion Gap (5-15) MEQ/L BUN (9-20) mg/dL Venous BUN 42 H (8-26) mg/dL Creatinine 1.9 H (0.6-1.3) mg/dL Estimated GFR ML/MIN Glucose 139 H (70-105) mg/dL Lactic Acid (0.4-2.0) Calcium (8.4-10.2) mg/dL Ionized Calcium 1.14 (1.12-1.32) mmol/L Total Bilirubin (0.2-1.3) mg/dL AST (17-59) U/L ALT (0-50) U/L Alkaline Phosphatase (38-126) U/L Serum Total Protein (6.3-8.2) g/dL Albumin (3.5-5.0) g/dL Urine Color (YELLOW) Urine Appearance (CLEAR) Urine pH (5-6) Ur Specific [place] (1.005-1.025) Urine Protein (Negative) Urine Ketones (NEGATIVE) Urine Blood (0-5) Hank/ul Urine Nitrite (NEGATIVE) Urine Bilirubin (NEGATIVE) Urine Urobilinogen (0-1) mg/dL Ur Leukocyte Esterase (NEGATIVE) Urine WBC (Auto) (0-5) /HPF Urine RBC (Auto) (0-2) /HPF U Epithel Cells (Auto) (FEW) /HPF Urine Bacteria (Auto) (NEGATIVE) /HPF U Non-Squamous Epi Cells (FEW) /HPF Urine Mucus (Auto) (NEGATIVE) /HPF Urine Culture Reflexed (NO) Urine Glucose (NEGATIVE) mg/dL Influenza Type A Ag NEGATIVE (NEGATIVE) Influenza Type B Ag NEGATIVE (NEGATIVE) RSV (PCR) (Negative) SARS-CoV-2 (PCR) (NEGATIVE) 05/19/20 05/19/20 05/20/20 Range/Units 21:14 22:15 00:08 WBC (4.0-10.5) K/mm3 RBC (4.1-5.6) M/mm3 Hgb (12.5-18.0) gm/dl Hct (42-50) % MCV (78-100) fl MCH (26-32) pg MCHC (32-36) g/dl RDW (11.5-14.0) % Plt Count (150-450) K/mm3 MPV (7.5-11.0) fl Segmented Neutrophils (36.-66.) % Band Neutrophils (0.0-2.0) % Lymphocytes (Manual) (24-44) % Monocytes (Manual) (0.0-12.0) % Basophils (Manual) (0.0-1.0) % Platelet Estimate (NORMAL) RBC Morphology Ovalocytes Sodium (137-145) mmol/L Sodium Direct (138-146) mmol/L Potassium (3.5-4.9) mmol/L Chloride (98-109) mmol/L Carbon Dioxide (24-29) mmol/L Anion Gap (5-15) MEQ/L BUN (9-20) mg/dL Venous BUN (8-26) mg/dL Creatinine (0.6-1.3) mg/dL Estimated GFR ML/MIN Glucose (70-105) mg/dL Lactic Acid 1.2 (0.4-2.0) Calcium (8.4-10.2) mg/dL Ionized Calcium (1.12-1.32) mmol/L Total Bilirubin (0.2-1.3) mg/dL AST (17-59) U/L ALT (0-50) U/L Alkaline Phosphatase (38-126) U/L Serum Total Protein (6.3-8.2) g/dL Albumin (3.5-5.0) g/dL Urine Color YELLOW (YELLOW) Urine Appearance TURBID (CLEAR) Urine pH 5.0 (5-6) Ur Specific [place] 1.012 (1.005-1.025) Urine Protein 100 (Negative) Urine Ketones NEGATIVE (NEGATIVE) Urine Blood LARGE (0-5) Hank/ul Urine Nitrite NEGATIVE (NEGATIVE) Urine Bilirubin NEGATIVE (NEGATIVE) Urine Urobilinogen NEGATIVE (0-1) mg/dL Ur Leukocyte Esterase LARGE (NEGATIVE) Urine WBC (Auto) >100 (0-5) /HPF Urine RBC (Auto) >101 (0-2) /HPF U Epithel Cells (Auto) NONE (FEW) /HPF Urine Bacteria (Auto) MODERATE (NEGATIVE) /HPF U Non-Squamous Epi Cells RARE (FEW) /HPF Urine Mucus (Auto) SLIGHT (NEGATIVE) /HPF Urine Culture Reflexed YES (NO) Urine Glucose NEGATIVE (NEGATIVE) mg/dL Influenza Type A Ag NEGATIVE (NEGATIVE) Influenza Type B Ag NEGATIVE (NEGATIVE) RSV (PCR) NEGATIVE (Negative) SARS-CoV-2 (PCR) NEGATIVE (NEGATIVE) 05/20/20 05/20/20 Range/Units 05:25 05:25 WBC 11.8 H (4.0-10.5) K/mm3 RBC 4.07 L (4.1-5.6) M/mm3 Hgb 12.8 (12.5-18.0) gm/dl Hct 39.4 L (42-50) % MCV 96.8 (78-100) fl MCH 31.4 (26-32) pg MCHC 32.5 (32-36) g/dl RDW 18.3 H (11.5-14.0) % Plt Count 375 (150-450) K/mm3 MPV 10.5 (7.5-11.0) fl Segmented Neutrophils (36.-66.) % Band Neutrophils (0.0-2.0) % Lymphocytes (Manual) (24-44) % Monocytes (Manual) (0.0-12.0) % Basophils (Manual) (0.0-1.0) % Platelet Estimate (NORMAL) RBC Morphology Ovalocytes Sodium 135 L (137-145) mmol/L Sodium Direct (138-146) mmol/L Potassium 4.0 (3.5-4.9) mmol/L Chloride 99 (98-109) mmol/L Carbon Dioxide 24 (24-29) mmol/L Anion Gap 15.8 H (5-15) MEQ/L BUN 36 H (9-20) mg/dL Venous BUN (8-26) mg/dL Creatinine 1.72 H (0.6-1.3) mg/dL Estimated GFR 40.3 ML/MIN Glucose 138 H (70-105) mg/dL Lactic Acid (0.4-2.0) Calcium 8.9 (8.4-10.2) mg/dL Ionized Calcium (1.12-1.32) mmol/L Total Bilirubin 0.90 (0.2-1.3) mg/dL AST 22 (17-59) U/L ALT 13 (0-50) U/L Alkaline Phosphatase 79 (38-126) U/L Serum Total Protein 7.0 (6.3-8.2) g/dL Albumin 3.9 (3.5-5.0) g/dL Urine Color (YELLOW) Urine Appearance (CLEAR) Urine pH (5-6) Ur Specific [place] (1.005-1.025) Urine Protein (Negative) Urine Ketones (NEGATIVE) Urine Blood (0-5) Hank/ul Urine Nitrite (NEGATIVE) Urine Bilirubin (NEGATIVE) Urine Urobilinogen (0-1) mg/dL Ur Leukocyte Esterase (NEGATIVE) Urine WBC (Auto) (0-5) /HPF Urine RBC (Auto) (0-2) /HPF U Epithel Cells (Auto) (FEW) /HPF Urine Bacteria (Auto) (NEGATIVE) /HPF U Non-Squamous Epi Cells (FEW) /HPF Urine Mucus (Auto) (NEGATIVE) /HPF Urine Culture Reflexed (NO) Urine Glucose (NEGATIVE) mg/dL Influenza Type A Ag (NEGATIVE) Influenza Type B Ag (NEGATIVE) RSV (PCR) (Negative) SARS-CoV-2 (PCR) (NEGATIVE) - Radiology Impressions Radiology Exams & Impressions: Radiology Procedures Category Date Time Status CHEST WITHOUT CONTRAST [CT] Stat Exams 05/19/20 21:15 Taken - Other Procedures and Tests Respiratory Therapy 05/20/20 02:59 Oxygen NASAL CANNULA 2 lpm Assessment/Plan (1) UTI (urinary tract infection) Current Visit: Yes Status: Acute Qualifiers: Urinary tract infection type: acute cystitis Hematuria presence: with hematuria Qualified Code(s): N30.01 - Acute cystitis with hematuria Assessment & Plan: Advised needs to stay on IV rocephin likely several days, and definitely until culture and sensitivity are back. Code(s): N39.0 - URINARY TRACT INFECTION, SITE NOT SPECIFIED (2) HTN (hypertension) Current Visit: Yes Status: Chronic Qualifiers: Hypertension type: essential hypertension Qualified Code(s): I10 - Essential (primary) hypertension Assessment & Plan: will add prn blood pressure medicine Code(s): I10 - ESSENTIAL (PRIMARY) HYPERTENSION (3) Acute on chronic renal insufficiency Current Visit: Yes Status: Acute Assessment & Plan: Cr improved from 1.9 on admission to 1.72; his last labs were a bit better but are from 2017. Will continue IV fluids. Code(s): N28.9 - DISORDER OF KIDNEY AND URETER, UNSPECIFIED; N18.9 - CHRONIC KIDNEY DISEASE, UNSPECIFIED (4) Tremor Current Visit: Yes Status: Chronic Assessment & Plan: States his dad had similar tremor. I do not think any workup has been done. Code(s): R25.1 - TREMOR, UNSPECIFIED
--- NOTE | 2020-05-20 09:04 | XRAY ---
Indication: Weakness, malaise, fever, and cough. Multiple contiguous axial images obtained through the chest without contrast. Comparison: None Lungs demonstrates anatomic variant for azygos lobe, minimal bilateral dependent atelectasis, and minimal bibasilar fibrosis/scarring. Posterior left lower lobe demonstrates 5 mm indeterminant subpleural noncalcified nodule. No infiltrates, consolidation, or effusion. Heart is not enlarged and demonstrates scattered coronary calcifications and CABG surgery. Moderate scattered aortic calcifications without aneurysm. Small right hilar calcified node. No pathologic mediastinal lymphadenopathy. Small hiatal hernia. Bony thorax intact with osteopenia and flowing osteophytes throughout the spine. Limited upper abdomen demonstrates heavy scattered vascular calcifications and 5 mm gallstone. Incompletely visualized left kidney demonstrates hydronephrosis and incompletely visualized 1.6 cm exophytic cyst. Impression: 1. 5 mm indeterminant left lower lobe noncalcified nodule. Outside comparison studies recommended if available. If not, recommend follow-up per Fleischner guidelines. 2. Incompletely visualized hydronephrotic left kidney and incompletely visualized renal cyst. CT abdomen/pelvis may yield further information if clinically warranted. 3. Incidental small hiatal hernia, tiny gallstone, and scattered arteriosclerotic disease. 4. Remaining CT chest without contrast exam is negative. Comment: Preliminary interpretation was made by [facility]. No critical discrepancy.
[2020-05-20] MEDS ORDERED: Apresoline 25 MG TABLET PO PRN (09:06)
[2020-05-20] MEDS: hydroDIURIL 25 MG PO SCH (09:44)
[2020-05-20] MEDS: ZYLOPRIM 100 MG PO SCH (09:44)
[2020-05-20] MEDS: Cozaar 50 MG PO SCH (09:44)
[2020-05-20] MEDS: Lopressor 25MG Tab PO SCH ×2 (09:44→21:56)
[2020-05-20] MEDS: TYLENOL 325 MG PO PRN (09:45)
[2020-05-20] MEDS: Ecotrin 325 MG PO SCH (09:45)
[2020-05-20] MEDS: PATIENT OWN MEDICATION PO SCH ×2 (09:45→21:57)
[2020-05-20] MEDS: NORVASC 5 MG PO SCH (09:45)
[2020-05-20] MEDS ORDERED: NON-FORMULARY ITEM (Aspirin [Aspirin] 325 MG) PO SCH (10:00)
[2020-05-20] MEDS ORDERED: LOSARTAN PO SCH (10:00)
[2020-05-20] MEDS ORDERED: BICALUTAMIDE 50 MG PO SCH (10:00)
[2020-05-20] MEDS ORDERED: HYDROCHLOROTHIAZIDE PO SCH (10:00)
[2020-05-20 11:09] LABS: ANISOCYTOSIS 1+; BAND 3 % (0.0-2.0); Eosinophil 2 % (0.00-3.0); Lymphocytes 13 % (24-44); Monocyte 5 % (0.0-12.0); Neutrophils 77 % (36.-66.); Platelet Estimate NORMAL (NORMAL); Total Cells Counted 100; Toxic Granulation 1+
[2020-05-20] MEDS: ROCEPHIN 1 Gm-D5w 50 ml Bag** 1 G/50 ML IVPB IV SCH (21:58)
[2020-05-20] MEDS ORDERED: NON-FORMULARY ITEM (Rosuvastatin Calcium [Rosuvastatin Calcium] 10 MG) PO SCH (22:00)
[2020-05-21] MEDS: Sodium Chloride 0.9% 1000 ML 1,000 ML IV SCH ×2 (06:14→16:13)
[2020-05-21] MEDS ORDERED: PROVENTIL 2.5 MG/3 ML NEB IH PRN (08:58)
--- NOTE | 2020-05-21 08:58 | PCM.NOTE ---
Date and Time: 05/21/20 0856 Subjective Assessment: Pt has been afebrile for >24 hours and is feeling much better. Laura po well. - Review of Systems Constitutional: No Fever Abdominal/Gastrointestinal: No Vomiting Objective Exam General Appearance: no apparent distress, alert Neurologic Exam: oriented x 3, cooperative, normal mood/affect Skin Exam: normal color, warm, dry, No rash Respiratory Exam: normal breath sounds, lungs clear, wheezing (faint, expiratory), No crackles/rales, No rhonchi Cardiovascular Exam: regular rate/rhythm, normal heart sounds, No murmur Gastrointestinal/Abdomen Exam: soft, normal bowel sounds, No tenderness, No distention, No mass, No guarding, No rebound Extremity Exam: normal inspection, No pedal edema, No swelling Back Exam: normal inspection, No rash OBJECTIVE DATA Vital Signs: Vital Signs - 24 hr Temp Pulse Resp BP Pulse Ox 05/21/20 07:29 98.6 F 76 14 176/76 94 L 05/21/20 07:21 97 05/21/20 03:50 98.5 F 70 20 131/63 96 05/21/20 00:00 98.7 F 64 20 127/62 94 L 05/20/20 20:00 98.6 F 80 28 H 152/66 93 L 05/20/20 19:29 92 L 05/20/20 16:00 98.4 F 79 20 173/76 97 05/20/20 13:00 98.7 F 05/20/20 09:55 99.6 F Pain Assessment - Last Documented Pain Intensity 0 Intake and Output: Intake & Output 05/18/20 05/19/20 05/20/20 05/21/20 11:59 11:59 11:59 11:59 Intake Total 1240 360 Output Total 500 1125 Balance 740 -765 Weight 100.6 kg 100.2 kg Lab Results: Lab Results-Last 24 Hours 05/20/20 Range/Units 05:25 Segmented Neutrophils 77 H (36.-66.) % Band Neutrophils 3 H (0.0-2.0) % Lymphocytes (Manual) 13 L (24-44) % Monocytes (Manual) 5 (0.0-12.0) % Eosinophils (Manual) 2 (0.00-3.0) % Toxic Granulation 1+ Platelet Estimate NORMAL (NORMAL) RBC Morphology ABNORMAL Anisocytosis 1+ Radiology Exams: Radiology Procedures Category Date Time Status CHEST WITHOUT CONTRAST [CT] Stat Exams 05/19/20 21:15 Completed Assessment/Plan (1) UTI (urinary tract infection) Current Visit: Yes Status: Acute Qualifiers: Urinary tract infection type: acute cystitis Hematuria presence: with hematuria Qualified Code(s): N30.01 - Acute cystitis with hematuria Assessment & Plan: G neg, sensitivity pending. On rocep day #2. Code(s): N39.0 - URINARY TRACT INFECTION, SITE NOT SPECIFIED (2) HTN (hypertension) Current Visit: Yes Status: Chronic Qualifiers: Hypertension type: essential hypertension Qualified Code(s): I10 - Essential (primary) hypertension Assessment & Plan: 127-176 systolic in the past 24 h. Code(s): I10 - ESSENTIAL (PRIMARY) HYPERTENSION (3) Acute on chronic renal insufficiency Current Visit: Yes Status: Acute Assessment & Plan: recheck in the a.m. Code(s): N28.9 - DISORDER OF KIDNEY AND URETER, UNSPECIFIED; N18.9 - CHRONIC KIDNEY DISEASE, UNSPECIFIED (4) Tremor Current Visit: Yes Status: Chronic Code(s): R25.1 - TREMOR, UNSPECIFIED (5) Wheezing Current Visit: Yes Status: Acute Assessment & Plan: Pt aware and thinks no hx of same. albuterol nebs. Code(s): R06.2 - WHEEZING
[2020-05-21] MEDS: Ecotrin 325 MG PO SCH (09:08)
[2020-05-21] MEDS: ZYLOPRIM 100 MG PO SCH (09:08)
[2020-05-21] MEDS: Lopressor 25MG Tab PO SCH ×2 (09:08→21:01)
[2020-05-21] MEDS: hydroDIURIL 25 MG PO SCH (09:08)
[2020-05-21] MEDS: PATIENT OWN MEDICATION PO SCH ×2 (09:08→21:02)
[2020-05-21] MEDS: NORVASC 5 MG PO SCH (09:08)
[2020-05-21] MEDS: Cozaar 50 MG PO SCH (09:09)
[2020-05-21] MEDS: TYLENOL 325 MG PO PRN (16:03)
[2020-05-21] MEDS: ROCEPHIN 1 Gm-D5w 50 ml Bag** 1 G/50 ML IVPB IV SCH (21:02)
[2020-05-22] MEDS: TYLENOL 325 MG PO PRN (00:55)
[2020-05-22] MEDS: Sodium Chloride 0.9% 1000 ML 1,000 ML IV SCH (03:10)
[2020-05-22 05:05] LABS: Hematocrit 32.8 % (42-50); Hemoglobin 10.7 gm/dl (12.5-18.0); Mean Cell Volume 96.8 fl (78-100); Mean Corpuscular Hemoglobin 31.6 pg (26-32); Mean Corpuscular Hgb Concent. 32.6 g/dl (32-36); Mean Platelet Volume 10.8 fl (7.5-11.0); Platelet Count 349 K/mm3 (150-450); Red Blood Count 3.39 M/mm3 (4.1-5.6); Red Cell Distribution Width 17.9 % (11.5-14.0); White Blood Count 8.5 K/mm3 (4.0-10.5)
[2020-05-22 05:24] LABS: ANION GAP 11.7 MEQ/L (5-15); Calcium 8.1 mg/dL (8.4-10.2); Creatinine 1 1.47 mg/dL (0.66-1.25); EST GLOMERULAR FILTRATION RATE 48.3 ML/MIN; Potassium 3.1 mmol/L (3.5-5.1)
[2020-05-22] MEDS: Cozaar 50 MG PO SCH (09:52)
[2020-05-22] MEDS: hydroDIURIL 25 MG PO SCH (09:52)
[2020-05-22] MEDS: NORVASC 5 MG PO SCH (09:53)
[2020-05-22] MEDS: Ecotrin 325 MG PO SCH (09:53)
[2020-05-22] MEDS: ZYLOPRIM 100 MG PO SCH (09:53)
[2020-05-22] MEDS: PATIENT OWN MEDICATION PO SCH (09:54)
[2020-05-22] MEDS: Lopressor 25MG Tab PO SCH (10:15)
[2020-05-22 11:07] VITALS: BP 141/63; PULSE 64; O2SAT 96
--- NOTE | 2020-05-22 11:07 | PCM.DS ---
Discharge Summary Date of Admission: 05/20/20 01:48 Admitting Physician: BUNNY RICHARDSON Primary Care Provider: BUNNY RICHARDSON Allergies Allergies furosemide Allergy (Severe, Verified 05/20/20 09:26) Hives amoxicillin Allergy (Unknown, Verified 05/20/20 02:00) doxycycline Allergy (Unknown, Verified 05/20/20 02:00) morphine Adverse Reaction (Mild, Verified 05/20/20 02:00) hallucinating simvastatin [From Zocor] Adverse Reaction (Mild, Verified 05/20/20 02:00) muscle pain muscle pain pravastatin Adverse Reaction (Verified 05/20/20 02:00) muscle pain muscle pain Hospital Summary - Hospital Course Hospital Course: Pt is 84 yo male pt of Dr. Richardson with hx prostate ca, HTN, chronic renal insufficiency who was admitted through ER with UTI. Put on IV rocephin; urine cultrue positive for E. coli, susceptible to rocephin and kefzol, so will be discharged to home on keflex x 4d. Pt will be sent home with a walker per PT. He did have some wheezing here so will be discharged with an albuterol inhaler to use prn. He will f/u with his urologist soon (due for an appt) and will f/u with PCP in 1 week. - Vitals & Intake/Output Vital Signs: Vital Signs Temperature 98.5 F 05/22/20 07:25 Pulse Rate 63 05/22/20 07:25 Respiratory Rate 18 05/22/20 07:25 Blood Pressure 142/63 05/22/20 07:25 O2 Sat by Pulse Oximetry 95 05/22/20 07:25 Intake & Output: Intake & Output 05/19/20 05/20/20 05/21/20 05/22/20 11:59 11:59 11:59 11:59 Intake Total 0569 639 6292 Output Total 500 1125 2275 Balance 740 -765 994 Weight 100.6 kg 100.2 kg 102.3 kg - Lab Result Diagrams: 05/22/20 04:20 05/22/20 04:20 Lab Results-Last 24 Hrs: Lab Results-Last 24 Hours 05/22/20 05/22/20 Range/Units 04:20 04:20 WBC 8.5 (4.0-10.5) K/mm3 RBC 3.39 L (4.1-5.6) M/mm3 Hgb 10.7 L (12.5-18.0) gm/dl Hct 32.8 L (42-50) % MCV 96.8 (78-100) fl MCH 31.6 (26-32) pg MCHC 32.6 (32-36) g/dl RDW 17.9 H (11.5-14.0) % Plt Count 349 (150-450) K/mm3 MPV 10.8 (7.5-11.0) fl Sodium 137 (137-145) mmol/L Potassium 3.1 L D (3.5-5.1) mmol/L Chloride 105 (98-107) mmol/L Carbon Dioxide 23 (22-30) mmol/L Anion Gap 11.7 (5-15) MEQ/L BUN 37 H (9-20) mg/dL Creatinine 1.47 H (0.66-1.25) mg/dL Estimated GFR 48.3 ML/MIN Glucose 114 H (74-106) mg/dL Calcium 8.1 L (8.4-10.2) mg/dL Micro Results-Entire Visit: Microbiology 05/19/20 22:15 Urine Culture - Final Clean Catch Midstream Escherichia Coli 05/20/20 00:30 Blood Culture - Preliminary Blood NO GROWTH TO DATE 05/20/20 00:00 Blood Culture - Preliminary Blood NO GROWTH TO DATE - Procedures and Test Procedures and Tests throughout Hospitalization: Therapy Orders & Screens 05/20/20 02:59 Oxygen NASAL CANNULA 2 lpm Comment: Diagnosis: UTI 05/21/20 11:41 Respiratory Therapy Assessment DAILY Comment: Diagnosis: UTI 05/22/20 08:13 PT Eval & Treat (MD Order) ONCE Reason for Eval:: nursing feels patient may benefit from walker Diagnosis: UTI Discharge Exam General Appearance: no apparent distress, alert Neurologic Exam: oriented x 3, cooperative Eye Exam: eyes nml inspection Ears, Nose, Throat Exam: moist mucous membranes Respiratory Exam: normal breath sounds, lungs clear, wheezing (faint scattered expiratory wheeze), No crackles/rales, No rhonchi Cardiovascular Exam: regular rate/rhythm, normal heart sounds, No murmur Gastrointestinal/Abdomen Exam: soft, No normal bowel sounds (hypoactive but present), No tenderness, No distention, No mass, No guarding, No rebound Back Exam: normal inspection, No rash Extremity Exam: normal inspection, No pedal edema, No swelling Skin Exam: normal color, warm, dry, No rash Final Diagnosis/Problem List - Final Discharge Diagnosis/Problem (1) UTI (urinary tract infection) Current Visit: Yes Status: Acute Assessment & Plan: Treated x 3d with rocephin IV; home on keflex x 4d. Code(s): N39.0 - URINARY TRACT INFECTION, SITE NOT SPECIFIED (2) HTN (hypertension) Current Visit: Yes Status: Chronic Assessment & Plan: Some intermittent elevated BP here, but likely due to pt being ill and on IV fluids. Due to increased risk of causing hypotension by adjusting meds during acute hospitalization in this 84 yo, will not change his antihypertensives at this time. F/u with PCP in 1 wk. Code(s): I10 - ESSENTIAL (PRIMARY) HYPERTENSION (3) Acute on chronic renal insufficiency Current Visit: Yes Status: Acute Code(s): N28.9 - DISORDER OF KIDNEY AND URETER, UNSPECIFIED; N18.9 - CHRONIC KIDNEY DISEASE, UNSPECIFIED (4) Tremor Current Visit: Yes Status: Chronic Code(s): R25.1 - TREMOR, UNSPECIFIED (5) Wheezing Current Visit: Yes Status: Acute Code(s): R06.2 - WHEEZING - Discharge Disposition: Home, Self-Care Condition: Good Prescriptions: New Albuterol Sulfate [Albuterol Sulfate Hfa] 8.5 gm IH QID PRN #1 hfa.aer.ad PRN Reason: wheezing Cephalexin Mh 500 mg [Keflex 500 mg] 500 mg PO QID #16 capsule Continue Rosuvastatin Calcium 10 mg PO HS Metoprolol Tartrate 25 mg [Lopressor 25MG Tab] 25 mg PO BID Bicalutamide [Casodex] 50 mg PO DAILY Aspirin 325 mg PO DAILY Amlodipine Besylate 5 mg [Norvasc 5 mg] 5 mg PO DAILY Losartan/Hydrochlorothiazide [Losartan-Hctz 100-25 mg Tab] 0.5 tab PO DAILY Allopurinol 100 mg [Zyloprim 100 mg] 100 mg PO DAILY Follow up with: BUNNY RICHARDSON MD [Primary Care Provider] - 05/30/20 3:30 pm
== END 2020-05-22 11:57 | disposition home or self-care (01) ==
LOC: ED 20:46 → MED SURG 05-20 01:48
PROVIDERS: ADMIT Family Medicine; ATTEND Family Medicine
DX: N39.0 Urinary tract infection, site not specified (principal); Z85.46 Personal history of malignant neoplasm of prostate; I12.9 Hypertensive chronic kidney disease with stage 1 through stage 4 chronic kidney disease, or unspecified chronic kidney disease; N18.9 Chronic kidney disease, unspecified; R25.1 Tremor, unspecified; R06.2 Wheezing; Z79.899 Other long term (current) drug therapy; R31.9 Hematuria, unspecified; R53.1 Weakness; R53.83 Other fatigue; E78.00 Pure hypercholesterolemia, unspecified
CPT/HCPCS: 0241U; 36415; 71250; 80047; 80048; 80053; 81001; 83605; 85025; 85027; 87040; 87077; 87086; 87186; 87400; 94760; 94762; 96360; 96365; 97162; 99284; 93268; J0696; A9270-GY; G0378

== ENCOUNTER 2021-11-07 20:58 | Inpatient (IN) | payer MEDICARE ==
--- NOTE | 2021-11-07 21:02 | ERPHSYRPT ---
- History of Present Illness Time Seen by Provider: 11/07/21 21:01 Source: patient, EMS Exam Limitations: no limitations Physician History: This is an 86-year-old white male brought into the emergency department by the EMS service because of weakness that he has been experiencing over the last month. His weakness is worsening. Patient came from home. Patient has a h istory of prostate cancer and has been on chemotherapy. He feels like the chemotherapy is what is causing him the weakness and the decreased appetite. Patient also has a cough. He has no significant abdominal pain. He has no chest pain. He has been experiencing chronic nausea. Patient has a history of hypertension, hyperlipidemia, coronary artery disease and gout. Patient underwent a CABG procedure 15 years ago. Timing/Duration: worse, other (Worsening symptoms over at least a month) Severity: moderate Modifying Factors: Improves With: nothing Associated Symptoms: nausea, weakness, No vomiting, No abdominal pain, No shortness of breath, No chest pain Allergies/Adverse Reactions: furosemide Allergy (Severe, Verified 05/20/20 09:26) Hives amoxicillin Allergy (Unknown, Verified 05/20/20 02:00) doxycycline Allergy (Unknown, Verified 05/20/20 02:00) Penicillins Allergy (Unknown, Verified 11/07/21 21:13) morphine Adverse Reaction (Mild, Verified 05/20/20 02:00) hallucinating simvastatin [From Zocor] Adverse Reaction (Mild, Verified 05/20/20 02:00) muscle pain muscle pain pravastatin Adverse Reaction (Verified 05/20/20 02:00) muscle pain muscle pain Home Medications: Metoprolol Tartrate 25 mg [Lopressor 25MG Tab] 25 mg PO DAILY 12/21/16 [History] Allopurinol 100 mg [Zyloprim 100 mg] 100 mg PO DAILY 05/19/20 [History] Apalutamide [Erleada] 60 mg PO QID 11/08/21 [History] Ferrous Sulfate [Iron] 325 mg PO DAILY 11/08/21 [History] Hx Tetanus, Diphtheria Vaccination/Date Given: No (unknown) Hx Influenza Vaccination/Date Given: No Hx Pneumococcal Vaccination/Date Given: No Travel Risk - International Travel Have you traveled outside of the country in past 3 weeks: No - Coronavirus Screening Are you exhibiting any of the following symptoms?: No Close contact with a COVID-19 positive Pt in past 14-21 Days: No - Review of Systems Constitutional: Weakness Eyes: No Symptoms Ears, Nose, & Throat: No Symptoms Respiratory: No Symptoms Cardiac: No Symptoms Abdominal/Gastrointestinal: Nausea, No Abdominal Pain, No Vomiting, No Diarrhea Genitourinary Symptoms: No Symptoms Musculoskeletal: No Symptoms Skin: No Symptoms Neurological: No Symptoms Psychological: No Symptoms Endocrine: No Symptoms Hematologic/Lymphatic: No Symptoms Immunological/Allergic: No Symptoms All Other Systems: Reviewed and Negative - Past Medical History Pertinent Past Medical History: No Neurological History: No Pertinent History ENT History: No Pertinent History Cardiac History: Coronary Artery Disease, High Cholesterol, Hypertension Respiratory History: No Pertinent History Endocrine Medical History: No Pertinent History Musculoskeletal History: No Pertinent History GI Medical History: GERD, Hernia History: No Pertinent History Psycho-Social History: No Pertinent History Male Reproductive Disorders: Prostate Cancer, Prostate Problems Other Medical History: PROSTATE CA 2006 TREATED WITH RADIATION. CABG X 3 IN 2006. INGUINAL HERNIA REPAIR 2016 - Past Surgical History Past Surgical History: Yes Neuro Surgical History: No Pertinent History Cardiac: CABG, Cardiac Catheterization, Vascular Surgery Respiratory: No Pertinent History Gastrointestinal: Hernia Repair Genitourinary: No Pertinent History Musculoskeletal: No Pertinent History Male Surgical History: Prostate Surgery - Social History Smoking Status: Former smoker Exposure to second hand smoke: No Drug Use: none Patient Lives Alone: Yes Significant Family History: no pertinent family hx - Nursing Vital Signs Nursing Vital Signs: Initial Vital Signs Temperature 99.2 F 11/07/21 20:59 Pulse Rate 96 H 11/07/21 20:59 Respiratory Rate 18 11/07/21 20:59 Blood Pressure 121/70 11/07/21 20:59 O2 Sat by Pulse Oximetry 95 11/07/21 20:59 Pain Scale Pain Intensity 0 - Physical Exam General Appearance: no apparent distress, alert, anxiety Eye Exam: PERRL/EOMI, eyes nml inspection Ears, Nose, Throat Exam: normal ENT inspection, dry mucous membranes Neck Exam: normal inspection, non-tender, supple, full range of motion Respiratory Exam: normal breath sounds, lungs clear, airway intact, No chest tenderness, No respiratory distress Cardiovascular Exam: regular rate/rhythm, normal heart sounds, normal peripheral pulses Gastrointestinal/Abdomen Exam: soft, normal bowel sounds, No tenderness Rectal Exam: not done Back Exam: normal inspection, normal range of motion, No CVA tenderness, No vertebral tenderness Extremity Exam: normal inspection, normal range of motion, pelvis stable Neurologic Exam: alert, oriented x 3, cooperative, 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 tested, normal mood/affect, nml cerebellar function, nml station & gait, sensation nml Skin Exam: normal color, warm, dry Lymphatic Exam: No adenopathy SpO2 Interpretation: normal O2 Delivery: Room Air - Course Nursing assessment & vital signs reviewed: Yes Ordered Tests: Active Orders 24 hr Category Date Time Status Tugboat Mate STAT Care 11/07/21 21:25 Active EKG-ER Only STAT Care 11/07/21 21:24 Active IV Insertion STAT Care 11/07/21 21:24 Active Pulse Oximetry (ED) STAT Care 11/07/21 21:24 Active CHEST 1 VIEW (PORTABLE) Stat Exams 11/07/21 21:25 Completed BLOOD CULTURE Stat Lab 11/07/21 21:55 Received CBC W DIFF Stat Lab 11/07/21 21:55 Completed CMP Stat Lab 11/07/21 21:55 Completed CULTURE,URINE Stat Lab 11/07/21 23:37 Received Lactic Acid Stat Lab 11/07/21 21:24 Completed Lactic Acid Stat Lab 11/07/21 23:44 Received MAGNESIUM Stat Lab 11/07/21 21:55 Completed Manual Differential NC Stat Lab 11/07/21 21:55 Completed NT PRO BNP Stat Lab 11/07/21 21:55 Completed TROPONIN Q4H Lab 11/07/21 21:55 Completed TROPONIN Q4H Lab 11/08/21 01:33 Received TROPONIN Q4H Lab 11/08/21 05:30 Ordered UA W/RFX CULTURE Stat Lab 11/07/21 23:37 Completed Transfer Order Routine Transfer 11/08/21 Ordered Medication Summary Generic Name Dose Route Start Last Admin Trade Name Freq PRN Reason Stop Dose Admin Sodium Chloride 1,000 mls @ 100 mls/hr 11/07/21 21:30 11/07/21 21:48 Sodium Chloride 0.9% 1000 Ml IV 12/07/21 21:29 100 mls/hr .Q10H [place] Administration Discontinued Medications Generic Name Dose Route Start Last Admin Trade Name Freq PRN Reason Stop Dose Admin Methylprednisolone Sodium 0 mg 11/07/21 23:43 11/07/21 23:55 Succinate 125 mg/ Sterile IV 11/07/21 23:44 125 mg Water 2 ml STAT ONE Administration Promethazine HCl 12.5 mg/ 100.5 mls @ 201 mls/hr 11/07/21 21:30 11/07/21 22:31 Sodium Chloride IV 11/07/21 21:59 201 mls/hr STAT ONE Administration Sodium Chloride Confirm 11/07/21 22:25 Sodium Chloride 0.9% Administered 11/07/21 22:26 Dose 100 mls @ ud .ROUTE .STK-MED ONE Ceftriaxone Sodium/Dextrose 1 g in 50 mls @ 100 mls/hr 11/08/21 01:06 11/08/21 01:11 Rocephin 1 Gm-D5w 50 Ml Bag IV 11/08/21 01:35 100 ml/hr STAT STA 100 mls/hr Administration Ceftriaxone Sodium/Dextrose Confirm 11/08/21 01:08 Rocephin 1 Gm-D5w 50 Ml Bag Administered 11/08/21 01:09 Dose 1 g in 50 mls @ ud IV .STK-MED ONE Methylprednisolone Sodium Succinate Confirm 11/07/21 23:52 Methylprednis Sod Succ 125 Mg/2 Ml Vial Administered 11/07/21 23:53 Dose 125 mg .ROUTE .STK-MED ONE Pantoprazole Sodium 40 mg 11/07/21 21:31 11/07/21 21:50 Pantoprazole 40 Mg Vial IV 11/07/21 21:32 40 mg STAT ONE Administration Pantoprazole Sodium Confirm 11/07/21 21:49 Pantoprazole 40 Mg Vial Administered 11/07/21 21:50 Dose 40 mg IV .STK-MED ONE Promethazine HCl Confirm 11/07/21 22:25 Promethazine Hcl 25 Mg/Ml Vial Administered 11/07/21 22:26 Dose 25 mg .ROUTE .STK-MED ONE Sterile Water Confirm 11/07/21 23:52 Water For Injection,Sterile 10 Ml Vial Administered 11/07/21 23:53 Dose 10 ml IJ .STK-MED ONE Lab/Rad Data: Laboratory Result Diagrams 11/07/21 21:55 11/07/21 21:55 Laboratory Results 11/07/21 11/07/21 11/07/21 Range/Units 23:37 21:55 21:55 WBC (4.0-10.5) x10^3/uL RBC (4.1-5.6) x10^6/uL Hgb (12.5-18.0) g/dL Hct (42-50) % MCV (78-100) fL MCH (26-32) pg MCHC (32-36) g/dL RDW (11.5-14.0) % Plt Count (150-450) x10^3/uL MPV (7.5-11.0) fL Gran % (36.0-66.0) % Immature Gran % (Auto) (0.00-0.4) % Nucleat RBC Rel Count (0.00-0.1) % Eos # (Auto) (0-0.5) x10^3/uL Immature Gran # (Auto) (0.00-0.03) x10^3u/L Absolute Lymphs (auto) (1.0-4.6) x10^3/uL Absolute Monos (auto) (0.0-1.3) x10^3/uL Absolute Nucleated RBC (0.00-0.01) x10^3u/L Lymphocytes % (24.0-44.0) % Monocytes % (0.0-12.0) % Eosinophils % (0.00-5.0) % Basophils % (0.0-0.4) % Absolute Granulocytes (1.4-6.9) x10^3/uL Basophils # (0-0.4) x10^3/uL Sodium (137-145) mmol/L Potassium (3.5-5.1) mmol/L Chloride (98-107) mmol/L Carbon Dioxide (22-30) mmol/L Anion Gap (5-15) MEQ/L BUN (9-20) mg/dL Creatinine (0.66-1.25) mg/dL Estimated GFR ML/MIN Glucose (74-106) mg/dL Lactic Acid (0.4-2.0) Calcium (8.4-10.2) mg/dL Magnesium (1.6-2.3) mg/dL Total Bilirubin (0.2-1.3) mg/dL AST (17-59) U/L ALT (0-50) U/L Alkaline Phosphatase (38-126) U/L Troponin I 0.033 (0.000-0.034) ng/mL NT-Pro-B Natriuret Pep (0-1800) pg/mL Serum Total Protein (6.3-8.2) g/dL Albumin (3.5-5.0) g/dL Urinalys Dipstick Clnc MAIN LAB Urine Color YELLOW (YELLOW) Urine Appearance MUCOUS (CLEAR) Urine pH 6.5 (5-6) Ur Specific Girdler 1.020 (1.005-1.025) POC Urine Protein Conf 100 (Negative) Urine Ketones NEGATIVE (NEGATIVE) Urine Nitrite POSITIVE (NEGATIVE) Urine Bilirubin NEGATIVE (NEGATIVE) Urine Urobilinogen 0.2 (0-1) mg/dL Urine Leukocytes LARGE (NEGATIVE) Urine WBC (Auto) >100 (0-5) /HPF Urine RBC (Auto) 26-50 (0-2) /HPF U Epithel Cells (Auto) RARE (FEW) /HPF Urine Bacteria (Auto) MANY (NEGATIVE) /HPF Urine RBC LARGE (0-5) Hank/ul Other Casts (Auto) 0-2 (NEGATIVE) /LPF Urine Mucus (Auto) SLIGHT (NEGATIVE) /HPF Ur Culture Indicated? YES Urine Glucose NEGATIVE (NEGATIVE) mg/dL Influenza Type A Ag NEGATIVE (NEGATIVE) Influenza Type B Ag NEGATIVE (NEGATIVE) RSV (PCR) NEGATIVE (Negative) SARS-CoV-2 (PCR) POSITIVE A (NEGATIVE) 11/07/21 11/07/21 11/07/21 Range/Units 21:55 21:55 21:24 WBC 7.3 (4.0-10.5) x10^3/uL RBC 4.04 L (4.1-5.6) x10^6/uL Hgb 12.2 L (12.5-18.0) g/dL Hct 37.5 L (42-50) % MCV 92.8 (78-100) fL MCH 30.2 (26-32) pg MCHC 32.5 (32-36) g/dL RDW 18.6 H (11.5-14.0) % Plt Count 275 (150-450) x10^3/uL MPV 10.9 (7.5-11.0) fL Gran % 68.6 H (36.0-66.0) % Immature Gran % (Auto) 7.4 H (0.00-0.4) % Nucleat RBC Rel Count 0.0 (0.00-0.1) % Eos # (Auto) 0.06 (0-0.5) x10^3/uL Immature Gran # (Auto) 0.54 H (0.00-0.03) x10^3u/L Absolute Lymphs (auto) 1.17 (1.0-4.6) x10^3/uL Absolute Monos (auto) 0.49 (0.0-1.3) x10^3/uL Absolute Nucleated RBC 0.00 (0.00-0.01) x10^3u/L Lymphocytes % 16.0 L (24.0-44.0) % Monocytes % 6.7 (0.0-12.0) % Eosinophils % 0.8 (0.00-5.0) % Basophils % 0.5 (0.0-0.4) % Absolute Granulocytes 5.03 (1.4-6.9) x10^3/uL Basophils # 0.04 (0-0.4) x10^3/uL Sodium 131 L (137-145) mmol/L Potassium 4.5 (3.5-5.1) mmol/L Chloride 100 (98-107) mmol/L Carbon Dioxide 23 (22-30) mmol/L Anion Gap 12.4 (5-15) MEQ/L BUN 28 H (9-20) mg/dL Creatinine 1.57 H (0.66-1.25) mg/dL Estimated GFR 44.5 ML/MIN Glucose 148 H (74-106) mg/dL Lactic Acid 3.2 H (0.4-2.0) Calcium 7.1 L (8.4-10.2) mg/dL Magnesium 2.2 (1.6-2.3) mg/dL Total Bilirubin 1.00 (0.2-1.3) mg/dL AST 26 (17-59) U/L ALT 12 (0-50) U/L Alkaline Phosphatase 78 (38-126) U/L Troponin I (0.000-0.034) ng/mL NT-Pro-B Natriuret Pep 4280 H (0-1800) pg/mL Serum Total Protein 6.6 (6.3-8.2) g/dL Albumin 3.5 (3.5-5.0) g/dL Urinalys Dipstick Clnc Urine Color (YELLOW) Urine Appearance (CLEAR) Urine pH (5-6) Ur Specific Girdler (1.005-1.025) POC Urine Protein Conf (Negative) Urine Ketones (NEGATIVE) Urine Nitrite (NEGATIVE) Urine Bilirubin (NEGATIVE) Urine Urobilinogen (0-1) mg/dL Urine Leukocytes (NEGATIVE) Urine WBC (Auto) (0-5) /HPF Urine RBC (Auto) (0-2) /HPF U Epithel Cells (Auto) (FEW) /HPF Urine Bacteria (Auto) (NEGATIVE) /HPF Urine RBC (0-5) Hank/ul Other Casts (Auto) (NEGATIVE) /LPF Urine Mucus (Auto) (NEGATIVE) /HPF Ur Culture Indicated? Urine Glucose (NEGATIVE) mg/dL Influenza Type A Ag (NEGATIVE) Influenza Type B Ag (NEGATIVE) RSV (PCR) (Negative) SARS-CoV-2 (PCR) (NEGATIVE) - Progress Progress: improved Progress Note: 11/07/21 21:49 Chest x-ray is nonacute with hyper inflation 11/07/21 23:41 Medical decision making: This patient has COVID-19 infection. We are awaiting the urinalysis. Patient has an elevated BNP as well as some renal insufficiency. I think the patient would be best served placing him in observation and provide him with intravenous fluids at a slow rate. He is allergic to furosemide so we cannot give him that medication. However I believe that he is intravascularly depleted. I will contact Dr. Duy Delong once I have the complete work-up results. Patient states that he is a DO NOT RESUSCITATE. 11/08/21 01:40 Medical decision making: This patient has weakness, COVID-19 infection and urinary tract infection. His BNP is elevated. However he has no complaints of shortness of breath, chest pain or abdominal pain. There are no findings on chest x-ray to suggest congestive heart failure. I did speak with Dr. Duy Delong and reviewed the patient history and work-up results. We will place him in observation and provide him with low rate intravenous fluid and repeat labs in the morning. Discussed with : Devyn Counseled pt/family regarding: lab results, diagnosis, rad results - Departure Departure Disposition: Observation Clinical Impression: Weakness, COVID-19 virus infection, UTI (urinary tract infection) Condition: Fair Critical Care Time: No Referrals: BUNNY RICHARDSON MD [Primary Care Provider] - Follow up/PCP as directed
[2021-11-07] MEDS ORDERED: Phenergan 25 MG INJ*** 12.5 MG in Sodium Chloride 0.9% 100 ML IV ONE (21:30)
[2021-11-07] MEDS ORDERED: Sodium Chloride 0.9% 1000 ML 1,000 ML IV SCH (21:30)
[2021-11-07] MEDS ORDERED: PROTONIX 40 MG IV IV ONE ×2 (21:31→21:49)
[2021-11-07] MEDS ORDERED: Sodium Chloride 0.9% 1000 ML 1,000 ML ONE (21:31)
--- NOTE | 2021-11-07 21:42 | XRAY ---
Indication: Cough. Comparison: None Portable chest hyperinflated and clear. Heart not enlarged with CABG and mild tortuous descending aorta. Bony thorax intact with osteopenia and degenerative changes. Incidental left neck surgical clips. Impression: Nonacute hyperinflated chest with chronic features.
[2021-11-07 22:10] LABS: Absolute Neutrophil Ct (ANC) 5.03 x10^3/uL (1.4-6.9); Basophil (Absolute #) 0.04 x10^3/uL (0-0.4); Eosinophil % 0.8 % (0.00-5.0); Eosinophil (Absolute #) 0.06 x10^3/uL (0-0.5); Hematocrit 37.5 % (42-50); Hemoglobin 12.2 g/dL (12.5-18.0); Lymphocyte (Absolute #) 1.17 x10^3/uL (1.0-4.6); Mean Cell Volume 92.8 fL (78-100); Mean Corpuscular Hemoglobin 30.2 pg (26-32); Mean Corpuscular Hgb Concent. 32.5 g/dL (32-36); Mean Platelet Volume 10.9 fL (7.5-11.0); Monocyte (Absolute #) 0.49 x10^3/uL (0.0-1.3); Monocytes % 6.7 % (0.0-12.0); Neutrophil % 68.6 % (36.0-66.0); Platelet Count 275 x10^3/uL (150-450); Red Blood Count 4.04 x10^6/uL (4.1-5.6); Red Cell Distribution Width 18.6 % (11.5-14.0); White Blood Count 7.3 x10^3/uL (4.0-10.5)
[2021-11-07 22:25] LABS: ALBUMIN 3.5 g/dL (3.5-5.0); ANION GAP 12.4 MEQ/L (5-15); Calcium 7.1 mg/dL (8.4-10.2); Creatinine 1 1.57 mg/dL (0.66-1.25); EST GLOMERULAR FILTRATION RATE 44.5 ML/MIN; MAGNESIUM 2.2 mg/dL (1.6-2.3); Potassium 4.5 mmol/L (3.5-5.1); Total Protein 6.6 g/dL (6.3-8.2)
[2021-11-07] MEDS ORDERED: Phenergan 25 MG INJ ONE (22:25)
[2021-11-07] MEDS ORDERED: Sodium Chloride 0.9% 100 ML ONE (22:25)
[2021-11-07 22:35] LABS: INFLUENZA A NEGATIVE (NEGATIVE); INFLUENZA B NEGATIVE (NEGATIVE); RESPIRATORY SYNCTIAL VIRUS NEGATIVE (Negative)
[2021-11-07 22:48] LABS: SARS-CoV-2 Xpert Express POSITIVE (NEGATIVE)
[2021-11-07] MEDS ORDERED: solu-MEDROL 125 MG, Sterile H2O 10 ml 2 ML IV ONE ×2 (23:43)
[2021-11-07] MEDS ORDERED: Sterile H2O 10 ml IJ ONE (23:52)
[2021-11-07] MEDS ORDERED: solu-MEDROL ONE (23:52)
[2021-11-08 00:48] LABS: Appearance MUCOUS (CLEAR); Bilirubin NEGATIVE (NEGATIVE); Glucose NEGATIVE (NEGATIVE); Ketones NEGATIVE (NEGATIVE); Ph 6.5 (5-6); Protein,Urine Dip 100 (Negative); RBC LARGE Ery/ul (0-5)
[2021-11-08 00:49] LABS: Dipstick done @ ? MAIN LAB; Nitrite POSITIVE (NEGATIVE); Urobilinogen 0.2 mg/dL (0-1)
[2021-11-08 00:50] LABS: Epithelial Cells RARE /HPF (FEW); Mucus SLIGHT /HPF (NEGATIVE); RBC 26-50 /HPF (0-2); WBC >100 /HPF (0-5)
[2021-11-08 00:52] LABS: Bacteria MANY /HPF (NEGATIVE); Urine Cultured Indicated? YES
[2021-11-08] MEDS ORDERED: ROCEPHIN 1 Gm-D5w 50 ml Bag** 1 G/50 ML IVPB IV STA (01:06)
[2021-11-08] MEDS ORDERED: ROCEPHIN 1 Gm-D5w 50 ml Bag** 1 G/50 ML IVPB IV ONE (01:08)
[2021-11-08] MEDS ORDERED: REMDESIVIR 200 MG in Sodium Chloride 0.9% 250 ML 250 ML IV ONE (02:52)
[2021-11-08] MEDS ORDERED: HYDROCODONE-ACETAMIN 2.5-108/5 ML SOLUTION PO PRN (02:52)
[2021-11-08] MEDS ORDERED: TYLENOL 325 MG PO PRN (02:52)
[2021-11-08] MEDS ORDERED: Zofran 4 MG/2 ML VIAL IV PRN (02:52)
[2021-11-08] MEDS ORDERED: REMDESIVIR 100 MG in Sodium Chloride 100ML MINI-BAG PLUS 100 ML IV SCH (02:52)
[2021-11-08 02:59] LABS: Eosinophil 1 % (0.00-3.0); Lymphocytes 17 % (24-44); Monocyte 9 % (0.0-12.0); Platelet Estimate NORMAL (NORMAL); Polychromasia 1+; Total Cells Counted 100
[2021-11-08 03:00] LABS: ANISOCYTOSIS 2+; Burr Cells 2+; Poikilocytosis 2+; Schistocytes 1+
[2021-11-08] MEDS ORDERED: Sodium Chloride 0.9% 250 ML 250 ML IV ONE (03:55)
[2021-11-08] MEDS ORDERED: REMDESIVIR IV ONE (03:55)
[2021-11-08] MEDS: Sodium Chloride 0.9% 1000 ML 1,000 ML IV SCH ×2 (04:11→14:51)
[2021-11-08 06:02] LABS: Absolute Neutrophil Ct (ANC) 3.03 x10^3/uL (1.4-6.9); Basophil (Absolute #) 0.03 x10^3/uL (0-0.4); Eosinophil % 0.2 % (0.00-5.0); Eosinophil (Absolute #) 0.01 x10^3/uL (0-0.5); Hematocrit 28.6 % (42-50); Hemoglobin 9.5 g/dL (12.5-18.0); Lymphocyte (Absolute #) 0.47 x10^3/uL (1.0-4.6); Lymphocytes % 11.1 % (24.0-44.0); Mean Cell Volume 91.7 fL (78-100); Mean Corpuscular Hemoglobin 30.4 pg (26-32); Mean Corpuscular Hgb Concent. 33.2 g/dL (32-36); Mean Platelet Volume 10.6 fL (7.5-11.0); Monocyte (Absolute #) 0.21 x10^3/uL (0.0-1.3); Neutrophil % 71.4 % (36.0-66.0); Platelet Count 323 x10^3/uL (150-450); Red Blood Count 3.12 x10^6/uL (4.1-5.6); Red Cell Distribution Width 18.6 % (11.5-14.0); White Blood Count 4.2 x10^3/uL (4.0-10.5)
[2021-11-08] MEDS ORDERED: VENTOLIN COMMON CANISTER IH PRN (06:33)
[2021-11-08 06:41] LABS: ALBUMIN 2.5 g/dL (3.5-5.0); ANION GAP 8.6 MEQ/L (5-15); BILIRUBIN,TOTAL 0.4 mg/dL (0.2-1.3); Calcium 6.4 mg/dL (8.4-10.2); Creatinine 1 1.4 mg/dL (0.66-1.25); EST GLOMERULAR FILTRATION RATE 50.8 ML/MIN; Total Protein 4.9 g/dL (6.3-8.2)
[2021-11-08] MEDS: Decadron 4 MG INJ IV SCH (09:37)
[2021-11-08] MEDS ORDERED: MEDICATION INTERVENTION MC SCH (12:30)
[2021-11-08] MEDS ORDERED: APALUTAMIDE 60 MG PO SCH (13:00)
[2021-11-08] MEDS: ZYLOPRIM 100 MG PO SCH (14:50)
[2021-11-08] MEDS: FEOSOL 325 MG PO SCH (14:50)
[2021-11-08] MEDS: Lopressor 25MG Tab PO SCH (14:50)
--- NOTE | 2021-11-08 15:42 | PCM.HP ---
History of Present Illness - Chief Complaint Chief Complaint: COVID19, UTI, weakness History of Present Illness: is a 86 year old male pt of Dr. Gilbert with hx prostate ca (on chemotherapy) and CAD wtih chronic renal failure (stage 3) who was admitted through ER with UTI, covid, and acute renal failure. He has been feeling ill with "cold sx" x 1 mo, no fever. It worsened despite OTC tx. Had cough with white saliva. No CP/SOB. Had a little vomiting x 2-3d and some diarrhea that he thinks may be chemo related. In ER, CXR was nonacute. BNP 4280. UA + nitrites, >100 WBC, 26-50 RBC. Rocephin, dexamethasone, and remdesivir were started and pt admitted to the med surg floor. Feeling better than at admission. - Review of Systems Ears, Nose, & Throat: Sinus Drainage Respiratory: Cough Abdominal/Gastrointestinal: Vomiting, Diarrhea, Melena (pt notes he is on iron) Genitourinary Symptoms: Urinary Retention (self cath for the past 1 yr in order to drain bladder completely) Neurological: Dizziness (if rises too quickly) All Other Systems: Reviewed and Negative Medications & Allergies Home Medications: Home Medication List Metoprolol Tartrate 25 mg [Lopressor 25MG Tab] 25 mg PO DAILY 12/21/16 [History Confirmed 11/08/21] Allopurinol 100 mg [Zyloprim 100 mg] 100 mg PO DAILY 05/19/20 [History Confirmed 11/08/21] Apalutamide [Erleada] 60 mg PO QID 11/08/21 [History Confirmed 11/08/21] Ferrous Sulfate [Iron] 325 mg PO DAILY 11/08/21 [History Confirmed 11/08/21] Allergies/Adverse Reactions: Allergies Allergy/AdvReac Type Severity Reaction Status Date / Time furosemide Allergy Severe Hives Verified 05/20/20 09:26 amoxicillin Allergy Unknown Verified 05/20/20 02:00 doxycycline Allergy Unknown Verified 05/20/20 02:00 Penicillins Allergy Unknown Verified 11/07/21 21:13 morphine AdvReac Mild hallucinati Verified 05/20/20 02:00 ng simvastatin [From Zocor] AdvReac Mild muscle pain Verified 05/20/20 02:00 pravastatin AdvReac muscle pain Verified 05/20/20 02:00 - Past Medical History Past Medical History: No Neurological History: Peripheral Neuropathy ENT History: No Pertinent History Cardiac History: Coronary Artery Disease, High Cholesterol, Hypertension Respiratory History: No Pertinent History Endocrine Medical History: No Pertinent History Musculoskelatal History: No Pertinent History GI Medical History: GERD, Hernia History: No Pertinent History Pyscho-Social History: No Pertinent History Male Reproductive Disorders: Prostate Cancer, Prostate Problems Comment: PROSTATE CA 2006 TREATED WITH RADIATION, recurrance now on oral chemo. CABG X 3 IN 2006. INGUINAL HERNIA REPAIR 2017 - Past Surgical History Past Surgical History: Yes Neuro Surgical History: No Pertinent History Cardiac History: CABG, Cardiac Catheterization, Vascular Surgery Respiratory Surgery: No Pertinent History GI Surgical History: Hernia Repair Genitourinary Surgical Hx: No Pertinent History Musculskeletal Surgical Hx: No Pertinent History Male Surgical History: Prostate Surgery Other Surgical History: lt carotid - Social History Smoking Status: Never smoker Exposure to second hand smoke: Yes Alcohol: None Drug Use: none Significant Family History: no pertinent family hx - Physical Exam Vital Signs: Vital Signs - 24 hr Temp Pulse Resp BP Pulse Ox 11/08/21 12:00 97.4 F 67 23 155/68 95 11/08/21 10:00 63 16 96 11/08/21 08:00 97.1 F 63 26 H 158/70 97 11/08/21 06:00 65 20 97 11/08/21 05:40 65 17 95 11/08/21 04:00 66 19 93 L 11/08/21 03:11 97.8 F 66 19 156/69 95 11/08/21 02:52 95 11/08/21 02:08 66 16 145/61 95 11/08/21 01:00 67 16 118/55 93 L 11/08/21 00:00 74 16 127/64 93 L 11/07/21 23:15 77 22 106/53 94 L 11/07/21 22:02 83 18 122/59 94 L 11/07/21 20:59 99.2 F 96 H 18 121/70 95 General Appearance: no apparent distress, alert Neurologic Exam: oriented x 3, cooperative, normal mood/affect Eye Exam: eyes nml inspection Ears, Nose, Throat Exam: moist mucous membranes Neck Exam: normal inspection, non-tender, No lymphadenopathy, No thyromegaly Respiratory Exam: normal breath sounds, lungs clear, No crackles/rales, No rhonchi, No wheezing Cardiovascular Exam: regular rate/rhythm, normal heart sounds, No murmur Gastrointestinal/Abdomen Exam: soft, normal bowel sounds, No tenderness, No distention, No mass, No guarding, No rebound Back Exam: normal inspection, No CVA tenderness, No rash Extremity Exam: normal inspection, No pedal edema, No swelling Skin Exam: normal color, warm, dry, No rash Results - Labs Lab/Micro Results: Lab Results-Last 24 Hours 11/07/21 11/07/21 11/07/21 Range/Units 21:24 21:55 21:55 WBC 7.3 (4.0-10.5) x10^3/uL RBC 4.04 L (4.1-5.6) x10^6/uL Hgb 12.2 L (12.5-18.0) g/dL Hct 37.5 L (42-50) % MCV 92.8 (78-100) fL MCH 30.2 (26-32) pg MCHC 32.5 (32-36) g/dL RDW 18.6 H (11.5-14.0) % Plt Count 275 (150-450) x10^3/uL MPV 10.9 (7.5-11.0) fL Gran % 68.6 H (36.0-66.0) % Immature Gran % (Auto) 7.4 H (0.00-0.4) % Nucleat RBC Rel Count 0.0 (0.00-0.1) % Eos # (Auto) 0.06 (0-0.5) x10^3/uL Immature Gran # (Auto) 0.54 H (0.00-0.03) x10^3u/L Absolute Lymphs (auto) 1.17 (1.0-4.6) x10^3/uL Absolute Monos (auto) 0.49 (0.0-1.3) x10^3/uL Absolute Nucleated RBC 0.00 (0.00-0.01) x10^3u/L Lymphocytes % 16.0 L (24.0-44.0) % Monocytes % 6.7 (0.0-12.0) % Eosinophils % 0.8 (0.00-5.0) % Basophils % 0.5 (0.0-0.4) % Absolute Granulocytes 5.03 (1.4-6.9) x10^3/uL Segmented Neutrophils 73 H (36.-66.) % Lymphocytes (Manual) 17 L (24-44) % Monocytes (Manual) 9 (0.0-12.0) % Eosinophils (Manual) 1 (0.00-3.0) % Basophils # 0.04 (0-0.4) x10^3/uL Platelet Estimate NORMAL (NORMAL) RBC Morphology ABNORMAL Polychromasia 1+ Poikilocytosis 2+ Anisocytosis 2+ Nolan Cells 2+ Schistocytes 1+ Morphology Comment Sodium 131 L (137-145) mmol/L Potassium 4.5 (3.5-5.1) mmol/L Chloride 100 (98-107) mmol/L Carbon Dioxide 23 (22-30) mmol/L Anion Gap 12.4 (5-15) MEQ/L BUN 28 H (9-20) mg/dL Creatinine 1.57 H (0.66-1.25) mg/dL Estimated GFR 44.5 ML/MIN Glucose 148 H (74-106) mg/dL Lactic Acid 3.2 H (0.4-2.0) Calcium 7.1 L (8.4-10.2) mg/dL Magnesium 2.2 (1.6-2.3) mg/dL Total Bilirubin 1.00 (0.2-1.3) mg/dL AST 26 (17-59) U/L ALT 12 (0-50) U/L Alkaline Phosphatase 78 (38-126) U/L Troponin I (0.000-0.034) ng/mL NT-Pro-B Natriuret Pep 4280 H (0-1800) pg/mL Serum Total Protein 6.6 (6.3-8.2) g/dL Albumin 3.5 (3.5-5.0) g/dL Urinalys Dipstick Clnc Urine Color (YELLOW) Urine Appearance (CLEAR) Urine pH (5-6) Ur Specific [place] (1.005-1.025) POC Urine Protein Conf (Negative) Urine Ketones (NEGATIVE) Urine Nitrite (NEGATIVE) Urine Bilirubin (NEGATIVE) Urine Urobilinogen (0-1) mg/dL Urine Leukocytes (NEGATIVE) Urine WBC (Auto) (0-5) /HPF Urine RBC (Auto) (0-2) /HPF U Epithel Cells (Auto) (FEW) /HPF Urine Bacteria (Auto) (NEGATIVE) /HPF Urine RBC (0-5) Hank/ul Other Casts (Auto) (NEGATIVE) /LPF Urine Mucus (Auto) (NEGATIVE) /HPF Ur Culture Indicated? Urine Glucose (NEGATIVE) mg/dL Influenza Type A Ag (NEGATIVE) Influenza Type B Ag (NEGATIVE) RSV (PCR) (Negative) SARS-CoV-2 (PCR) (NEGATIVE) 11/07/21 11/07/21 11/07/21 Range/Units 21:55 21:55 23:37 WBC (4.0-10.5) x10^3/uL RBC (4.1-5.6) x10^6/uL Hgb (12.5-18.0) g/dL Hct (42-50) % MCV (78-100) fL MCH (26-32) pg MCHC (32-36) g/dL RDW (11.5-14.0) % Plt Count (150-450) x10^3/uL MPV (7.5-11.0) fL Gran % (36.0-66.0) % Immature Gran % (Auto) (0.00-0.4) % Nucleat RBC Rel Count (0.00-0.1) % Eos # (Auto) (0-0.5) x10^3/uL Immature Gran # (Auto) (0.00-0.03) x10^3u/L Absolute Lymphs (auto) (1.0-4.6) x10^3/uL Absolute Monos (auto) (0.0-1.3) x10^3/uL Absolute Nucleated RBC (0.00-0.01) x10^3u/L Lymphocytes % (24.0-44.0) % Monocytes % (0.0-12.0) % Eosinophils % (0.00-5.0) % Basophils % (0.0-0.4) % Absolute Granulocytes (1.4-6.9) x10^3/uL Segmented Neutrophils (36.-66.) % Lymphocytes (Manual) (24-44) % Monocytes (Manual) (0.0-12.0) % Eosinophils (Manual) (0.00-3.0) % Basophils # (0-0.4) x10^3/uL Platelet Estimate (NORMAL) RBC Morphology Polychromasia Poikilocytosis Anisocytosis [place] Cells Schistocytes Morphology Comment Sodium (137-145) mmol/L Potassium (3.5-5.1) mmol/L Chloride (98-107) mmol/L Carbon Dioxide (22-30) mmol/L Anion Gap (5-15) MEQ/L BUN (9-20) mg/dL Creatinine (0.66-1.25) mg/dL Estimated GFR ML/MIN Glucose (74-106) mg/dL Lactic Acid (0.4-2.0) Calcium (8.4-10.2) mg/dL Magnesium (1.6-2.3) mg/dL Total Bilirubin (0.2-1.3) mg/dL AST (17-59) U/L ALT (0-50) U/L Alkaline Phosphatase (38-126) U/L Troponin I 0.033 (0.000-0.034) ng/mL NT-Pro-B Natriuret Pep (0-1800) pg/mL Serum Total Protein (6.3-8.2) g/dL Albumin (3.5-5.0) g/dL Urinalys Dipstick Clnc MAIN LAB Urine Color YELLOW (YELLOW) Urine Appearance MUCOUS (CLEAR) Urine pH 6.5 (5-6) Ur Specific [place] 1.020 (1.005-1.025) POC Urine Protein Conf 100 (Negative) Urine Ketones NEGATIVE (NEGATIVE) Urine Nitrite POSITIVE (NEGATIVE) Urine Bilirubin NEGATIVE (NEGATIVE) Urine Urobilinogen 0.2 (0-1) mg/dL Urine Leukocytes LARGE (NEGATIVE) Urine WBC (Auto) >100 (0-5) /HPF Urine RBC (Auto) 26-50 (0-2) /HPF U Epithel Cells (Auto) RARE (FEW) /HPF Urine Bacteria (Auto) MANY (NEGATIVE) /HPF Urine RBC LARGE (0-5) Hank/ul Other Casts (Auto) 0-2 (NEGATIVE) /LPF Urine Mucus (Auto) SLIGHT (NEGATIVE) /HPF Ur Culture Indicated? YES Urine Glucose NEGATIVE (NEGATIVE) mg/dL Influenza Type A Ag NEGATIVE (NEGATIVE) Influenza Type B Ag NEGATIVE (NEGATIVE) RSV (PCR) NEGATIVE (Negative) SARS-CoV-2 (PCR) POSITIVE A (NEGATIVE) 11/07/21 11/08/21 11/08/21 Range/Units 23:44 01:33 05:30 WBC (4.0-10.5) x10^3/uL RBC (4.1-5.6) x10^6/uL Hgb (12.5-18.0) g/dL Hct (42-50) % MCV (78-100) fL MCH (26-32) pg MCHC (32-36) g/dL RDW (11.5-14.0) % Plt Count (150-450) x10^3/uL MPV (7.5-11.0) fL Gran % (36.0-66.0) % Immature Gran % (Auto) (0.00-0.4) % Nucleat RBC Rel Count (0.00-0.1) % Eos # (Auto) (0-0.5) x10^3/uL Immature Gran # (Auto) (0.00-0.03) x10^3u/L Absolute Lymphs (auto) (1.0-4.6) x10^3/uL Absolute Monos (auto) (0.0-1.3) x10^3/uL Absolute Nucleated RBC (0.00-0.01) x10^3u/L Lymphocytes % (24.0-44.0) % Monocytes % (0.0-12.0) % Eosinophils % (0.00-5.0) % Basophils % (0.0-0.4) % Absolute Granulocytes (1.4-6.9) x10^3/uL Segmented Neutrophils (36.-66.) % Lymphocytes (Manual) (24-44) % Monocytes (Manual) (0.0-12.0) % Eosinophils (Manual) (0.00-3.0) % Basophils # (0-0.4) x10^3/uL Platelet Estimate (NORMAL) RBC Morphology Polychromasia Poikilocytosis Anisocytosis Nolan Cells Schistocytes Morphology Comment Sodium (137-145) mmol/L Potassium (3.5-5.1) mmol/L Chloride (98-107) mmol/L Carbon Dioxide (22-30) mmol/L Anion Gap (5-15) MEQ/L BUN (9-20) mg/dL Creatinine (0.66-1.25) mg/dL Estimated GFR ML/MIN Glucose (74-106) mg/dL Lactic Acid Cancelled (0.4-2.0) Calcium (8.4-10.2) mg/dL Magnesium (1.6-2.3) mg/dL Total Bilirubin (0.2-1.3) mg/dL AST (17-59) U/L ALT (0-50) U/L Alkaline Phosphatase (38-126) U/L Troponin I 0.029 0.030 (0.000-0.034) ng/mL NT-Pro-B Natriuret Pep (0-1800) pg/mL Serum Total Protein (6.3-8.2) g/dL Albumin (3.5-5.0) g/dL Urinalys Dipstick Clnc Urine Color (YELLOW) Urine Appearance (CLEAR) Urine pH (5-6) Ur Specific [place] (1.005-1.025) POC Urine Protein Conf (Negative) Urine Ketones (NEGATIVE) Urine Nitrite (NEGATIVE) Urine Bilirubin (NEGATIVE) Urine Urobilinogen (0-1) mg/dL Urine Leukocytes (NEGATIVE) Urine WBC (Auto) (0-5) /HPF Urine RBC (Auto) (0-2) /HPF U Epithel Cells (Auto) (FEW) /HPF Urine Bacteria (Auto) (NEGATIVE) /HPF Urine RBC (0-5) Hank/ul Other Casts (Auto) (NEGATIVE) /LPF Urine Mucus (Auto) (NEGATIVE) /HPF Ur Culture Indicated? Urine Glucose (NEGATIVE) mg/dL Influenza Type A Ag (NEGATIVE) Influenza Type B Ag (NEGATIVE) RSV (PCR) (Negative) SARS-CoV-2 (PCR) (NEGATIVE) 11/08/21 11/08/21 11/08/21 Range/Units 05:30 05:30 05:40 WBC 4.2 (4.0-10.5) x10^3/uL RBC 3.12 L (4.1-5.6) x10^6/uL Hgb 9.5 L D (12.5-18.0) g/dL Hct 28.6 L (42-50) % MCV 91.7 (78-100) fL MCH 30.4 (26-32) pg MCHC 33.2 (32-36) g/dL RDW 18.6 H (11.5-14.0) % Plt Count 323 (150-450) x10^3/uL MPV 10.6 (7.5-11.0) fL Gran % 71.4 H (36.0-66.0) % Immature Gran % (Auto) 11.6 H (0.00-0.4) % Nucleat RBC Rel Count 0.0 (0.00-0.1) % Eos # (Auto) 0.01 (0-0.5) x10^3/uL Immature Gran # (Auto) 0.49 H (0.00-0.03) x10^3u/L Absolute Lymphs (auto) 0.47 L (1.0-4.6) x10^3/uL Absolute Monos (auto) 0.21 (0.0-1.3) x10^3/uL Absolute Nucleated RBC 0.00 (0.00-0.01) x10^3u/L Lymphocytes % 11.1 L (24.0-44.0) % Monocytes % 5.0 (0.0-12.0) % Eosinophils % 0.2 (0.00-5.0) % Basophils % 0.7 (0.0-0.4) % Absolute Granulocytes 3.03 (1.4-6.9) x10^3/uL Segmented Neutrophils (36.-66.) % Lymphocytes (Manual) (24-44) % Monocytes (Manual) (0.0-12.0) % Eosinophils (Manual) (0.00-3.0) % Basophils # 0.03 (0-0.4) x10^3/uL Platelet Estimate (NORMAL) RBC Morphology Polychromasia Poikilocytosis Anisocytosis Nolan Cells Schistocytes Morphology Comment Sodium 131 L (137-145) mmol/L Potassium 4.0 (3.5-5.1) mmol/L Chloride 106 (98-107) mmol/L Carbon Dioxide 21 L (22-30) mmol/L Anion Gap 8.6 (5-15) MEQ/L BUN 27 H (9-20) mg/dL Creatinine 1.40 H (0.66-1.25) mg/dL Estimated GFR 50.8 ML/MIN Glucose 133 H (74-106) mg/dL Lactic Acid 0.8 (0.4-2.0) Calcium 6.4 L (8.4-10.2) mg/dL Magnesium (1.6-2.3) mg/dL Total Bilirubin 0.40 (0.2-1.3) mg/dL AST 17 (17-59) U/L ALT 9 (0-50) U/L Alkaline Phosphatase 60 (38-126) U/L Troponin I (0.000-0.034) ng/mL NT-Pro-B Natriuret Pep 2570 H (0-1800) pg/mL Serum Total Protein 4.9 L (6.3-8.2) g/dL Albumin 2.5 L (3.5-5.0) g/dL Urinalys Dipstick Clnc Urine Color (YELLOW) Urine Appearance (CLEAR) Urine pH (5-6) Ur Specific [place] (1.005-1.025) POC Urine Protein Conf (Negative) Urine Ketones (NEGATIVE) Urine Nitrite (NEGATIVE) Urine Bilirubin (NEGATIVE) Urine Urobilinogen (0-1) mg/dL Urine Leukocytes (NEGATIVE) Urine WBC (Auto) (0-5) /HPF Urine RBC (Auto) (0-2) /HPF U Epithel Cells (Auto) (FEW) /HPF Urine Bacteria (Auto) (NEGATIVE) /HPF Urine RBC (0-5) Hank/ul Other Casts (Auto) (NEGATIVE) /LPF Urine Mucus (Auto) (NEGATIVE) /HPF Ur Culture Indicated? Urine Glucose (NEGATIVE) mg/dL Influenza Type A Ag (NEGATIVE) Influenza Type B Ag (NEGATIVE) RSV (PCR) (Negative) SARS-CoV-2 (PCR) (NEGATIVE) - Radiology Impressions Radiology Exams & Impressions: Radiology Procedures Category Date Time Status CHEST 1 VIEW (PORTABLE) Stat Exams 11/07/21 21:25 Completed - Other Procedures and Tests Respiratory Therapy 11/08/21 06:33 Respiratory Therapy Assessment DAILY Assessment/Plan (1) UTI (urinary tract infection) Current Visit: Yes Status: Acute Qualifiers: Urinary tract infection type: acute cystitis Hematuria presence: with hematuria Qualified Code(s): N30.01 - Acute cystitis with hematuria Assessment & Plan: [facility] day #1. Code(s): N39.0 - URINARY TRACT INFECTION, SITE NOT SPECIFIED (2) COVID-19 virus infection Current Visit: Yes Status: Acute Assessment & Plan: remdesivir and dexamethasone Code(s): U07.1 - COVID-19 (3) Weakness Current Visit: Yes Status: Acute Code(s): R53.1 - WEAKNESS (4) Acute on chronic renal insufficiency Current Visit: No Status: Acute Assessment & Plan: usual eGFR low-mid 40s, although as low as 14 in 2020. Code(s): N28.9 - DISORDER OF KIDNEY AND URETER, UNSPECIFIED; N18.9 - CHRONIC KIDNEY DISEASE, UNSPECIFIED (5) HTN (hypertension) Current Visit: No Status: Chronic Qualifiers: Hypertension type: primary hypertension Qualified Code(s): I10 - Essential (primary) hypertension Code(s): I10 - ESSENTIAL (PRIMARY) HYPERTENSION (6) Anemia Current Visit: Yes Status: Acute Qualifiers: Anemia type: due to chronic kidney disease Code(s): D64.9 - ANEMIA, UNSPECIFIED
[2021-11-08] MEDS: ROCEPHIN 1 Gm-D5w 50 ml Bag** 1 G/50 ML IVPB IV SCH (21:17)
[2021-11-08] MEDS: REMDESIVIR 100 MG in Sodium Chloride 100ML MINI-BAG PLUS 100 ML IV SCH (22:06)
[2021-11-09 05:25] LABS: Hematocrit 28.2 % (42-50); Hemoglobin 9.6 g/dL (12.5-18.0); Mean Cell Volume 91.3 fL (78-100); Mean Corpuscular Hemoglobin 31.1 pg (26-32); Mean Platelet Volume 10.1 fL (7.5-11.0); Platelet Count 315 x10^3/uL (150-450); Red Blood Count 3.09 x10^6/uL (4.1-5.6); Red Cell Distribution Width 18.5 % (11.5-14.0); White Blood Count 4.8 x10^3/uL (4.0-10.5)
[2021-11-09 07:19] LABS: ANISOCYTOSIS 1+; Eosinophil 4 % (0.00-3.0); Lymphocytes 12 % (24-44); Monocyte 2 % (0.0-12.0); Platelet Estimate NORMAL (NORMAL); Total Cells Counted 100
[2021-11-09 07:20] LABS: BLOOD UREA NITROGEN 25 mg/dL (9-20); CHLORIDE 107 mmol/L (98-107); Calcium 6.1 mg/dL (8.4-10.2); Carbon Dioxide 19 mmol/L (22-30); EST GLOMERULAR FILTRATION RATE > 60.0 ML/MIN; Glucose 101 mg/dL (74-106); Potassium 3.9 mmol/L (3.5-5.1); SODIUM 132 mmol/L (137-145)
[2021-11-09 07:22] LABS: ANION GAP 9.9 MEQ/L (5-15)
[2021-11-09] MEDS: FEOSOL 325 MG PO SCH (08:11)
[2021-11-09] MEDS: Decadron 4 MG INJ IV SCH (08:11)
[2021-11-09] MEDS: Lopressor 25MG Tab PO SCH (08:11)
[2021-11-09] MEDS: ZYLOPRIM 100 MG PO SCH (08:11)
[2021-11-09] MEDS ORDERED: Tessalon Perles 100 MG PO PRN (08:17)
--- NOTE | 2021-11-09 08:17 | PCM.NOTE ---
Date and Time: 11/09/21814 Subjective Assessment: patient is weak and coughing, overall feels poorly. states he has been weak and losing a lot of weight due to oral chemo prior to current illness. denies dysuria or frequency Objective Exam General Appearance: no apparent distress Neurologic Exam: alert, oriented x 3, cooperative Respiratory Exam: rhonchi Cardiovascular Exam: regular rate/rhythm, normal heart sounds Gastrointestinal/Abdomen Exam: soft, No tenderness, No mass Extremity Exam: normal inspection, normal range of motion OBJECTIVE DATA Vital Signs: Vital Signs - 24 hr Temp Pulse Resp BP Pulse Ox 11/09/21 06:00 18 11/09/21 04:00 98.7 F 67 18 161/70 97 11/09/21 02:00 16 11/09/21 00:00 16 11/08/21 23:39 98.0 F 70 16 159/68 96 11/08/21 22:00 17 11/08/21 20:34 74 17 96 11/08/21 20:00 98.6 F 71 16 154/67 96 11/08/21 18:00 24 11/08/21 16:00 98.9 F 61 25 H 135/66 97 11/08/21 14:00 65 25 H 94 L 11/08/21 12:00 97.4 F 67 25 H 155/68 95 11/08/21 10:00 63 22 96 Pain Assessment - Last Documented Pain Intensity 0 Intake and Output: Intake & Output 11/06/21 11/07/21 11/08/21 11/09/21 11:59 11:59 11:59 11:59 Intake Total 240 5096 Output Total 520 1125 Balance -280 3971 Weight 68.9 kg Lab Results: Lab Results-Last 24 Hours 11/09/21 11/09/21 Range/Units 04:30 04:30 WBC 4.8 (4.0-10.5) x10^3/uL RBC 3.09 L (4.1-5.6) x10^6/uL Hgb 9.6 L (12.5-18.0) g/dL Hct 28.2 L (42-50) % MCV 91.3 (78-100) fL MCH 31.1 (26-32) pg MCHC 34.0 (32-36) g/dL RDW 18.5 H (11.5-14.0) % Plt Count 315 (150-450) x10^3/uL MPV 10.1 (7.5-11.0) fL Segmented Neutrophils 82 H (36.-66.) % Lymphocytes (Manual) 12 L (24-44) % Monocytes (Manual) 2 (0.0-12.0) % Eosinophils (Manual) 4 H (0.00-3.0) % Platelet Estimate NORMAL (NORMAL) RBC Morphology ABNORMAL Anisocytosis 1+ Sodium 132 L (137-145) mmol/L Potassium 3.9 (3.5-5.1) mmol/L Chloride 107 (98-107) mmol/L Carbon Dioxide 19 L (22-30) mmol/L Anion Gap 9.9 (5-15) MEQ/L BUN 25 H (9-20) mg/dL Creatinine 1.20 (0.66-1.25) mg/dL Estimated GFR > 60.0 ML/MIN Glucose 101 (74-106) mg/dL Calcium 6.1 L (8.4-10.2) mg/dL Radiology Exams: Radiology Procedures Category Date Time Status CHEST 1 VIEW (PORTABLE) Stat Exams 11/07/21 21:25 Completed Assessment/Plan (1) COVID-19 virus infection Current Visit: Yes Status: Acute Assessment & Plan: on remdesivir and dexamethasone. add tessalon perles for cough. code status SCO, patient is frail Code(s): U07.1 - COVID-19 (2) UTI (urinary tract infection) Current Visit: Yes Status: Acute Qualifiers: Urinary tract infection type: acute cystitis Hematuria presence: with hematuria Qualified Code(s): N30.01 - Acute cystitis with hematuria Assessment & Plan: on rocephin, culture pending Code(s): N39.0 - URINARY TRACT INFECTION, SITE NOT SPECIFIED (3) Acute on chronic renal insufficiency Current Visit: No Status: Acute Assessment & Plan: improved gfr today with gentle hydration Code(s): N28.9 - DISORDER OF KIDNEY AND URETER, UNSPECIFIED; N18.9 - CHRONIC KIDNEY DISEASE, UNSPECIFIED
[2021-11-09] MEDS: Sodium Chloride 0.9% 1000 ML 1,000 ML IV SCH (14:59)
[2021-11-09] MEDS: ROCEPHIN 1 Gm-D5w 50 ml Bag** 1 G/50 ML IVPB IV SCH (21:27)
[2021-11-09] MEDS: REMDESIVIR 100 MG in Sodium Chloride 100ML MINI-BAG PLUS 100 ML IV SCH (22:09)
[2021-11-10] MEDS: Sodium Chloride 0.9% 1000 ML 1,000 ML IV SCH (04:00)
[2021-11-10 05:26] LABS: Hematocrit 28.5 % (42-50); Hemoglobin 9.5 g/dL (12.5-18.0); Mean Cell Volume 91.1 fL (78-100); Mean Corpuscular Hemoglobin 30.4 pg (26-32); Mean Corpuscular Hgb Concent. 33.3 g/dL (32-36); Mean Platelet Volume 10.3 fL (7.5-11.0); Platelet Count 309 x10^3/uL (150-450); Red Blood Count 3.13 x10^6/uL (4.1-5.6); Red Cell Distribution Width 18.6 % (11.5-14.0); White Blood Count 4.2 x10^3/uL (4.0-10.5)
[2021-11-10 05:53] LABS: ALBUMIN 2.1 g/dL (3.5-5.0); ALKALINE PHOSPHATASE 54 U/L (38-126); ANION GAP 4.2 MEQ/L (5-15); BLOOD UREA NITROGEN 25 mg/dL (9-20); CHLORIDE 107 mmol/L (98-107); Calcium 6.3 mg/dL (8.4-10.2); Carbon Dioxide 21 mmol/L (22-30); Creatinine 1 1.21 mg/dL (0.66-1.25); EST GLOMERULAR FILTRATION RATE > 60.0 ML/MIN; Glucose 97 mg/dL (74-106); Potassium 3.8 mmol/L (3.5-5.1); SGOT/AST 14 U/L (17-59); SGPT/ALT 8 U/L (0-50); SODIUM 128 mmol/L (137-145); Total Protein 4.2 g/dL (6.3-8.2)
[2021-11-10 07:35] LABS: ANISOCYTOSIS 1+; Eosinophil 7 % (0.00-3.0); Lymphocytes 20 % (24-44); Monocyte 3 % (0.0-12.0); Platelet Estimate NORMAL (NORMAL); Total Cells Counted 100; Toxic Granulation 1+
--- NOTE | 2021-11-10 09:16 | PCM.NOTE ---
Date and Time: 11/10/21913 Subjective Assessment: patient reports he is feeling some better today, walked in the room with PT yesterday. still has some cough, currently on room air Objective Exam General Appearance: no apparent distress Neurologic Exam: alert, oriented x 3 Respiratory Exam: rhonchi (clearing), No respiratory distress, No accessory muscle use, No prolonged expirations Cardiovascular Exam: regular rate/rhythm, normal heart sounds Gastrointestinal/Abdomen Exam: soft, No tenderness, No mass Extremity Exam: normal inspection, normal range of motion OBJECTIVE DATA Vital Signs: Vital Signs - 24 hr Temp Pulse Resp BP Pulse Ox 11/10/21 08:00 96.1 F 72 25 H 118/61 92 L 11/10/21 06:00 16 11/10/21 04:00 98.7 F 86 16 135/52 94 L 11/10/21 02:00 20 11/10/21 00:00 20 11/09/21 23:53 98.1 F 73 20 178/76 92 L 11/09/21 22:00 16 11/09/21 20:00 64 16 11/09/21 18:55 63 16 93 L 11/09/21 18:00 23 11/09/21 16:00 97.4 F 65 23 127/64 97 11/09/21 14:00 23 11/09/21 12:00 97.6 F 64 23 128/65 95 11/09/21 10:00 20 Pain Assessment - Last Documented Pain Intensity 0 Intake and Output: Intake & Output 11/07/21 11/08/21 11/09/21 11/10/21 11:59 11:59 11:59 11:59 Intake Total 240 5336 2361 Output Total 520 1325 1700 Balance -280 4011 661 Weight 68.9 kg Lab Results: Lab Results-Last 24 Hours 11/10/21 11/10/21 Range/Units 05:15 05:15 WBC 4.2 (4.0-10.5) x10^3/uL RBC 3.13 L (4.1-5.6) x10^6/uL Hgb 9.5 L (12.5-18.0) g/dL Hct 28.5 L (42-50) % MCV 91.1 (78-100) fL MCH 30.4 (26-32) pg MCHC 33.3 (32-36) g/dL RDW 18.6 H (11.5-14.0) % Plt Count 309 (150-450) x10^3/uL MPV 10.3 (7.5-11.0) fL Segmented Neutrophils 70 H (36.-66.) % Lymphocytes (Manual) 20 L (24-44) % Monocytes (Manual) 3 (0.0-12.0) % Eosinophils (Manual) 7 H (0.00-3.0) % Toxic Granulation 1+ Platelet Estimate NORMAL (NORMAL) RBC Morphology ABNORMAL Anisocytosis 1+ Sodium 128 L (137-145) mmol/L Potassium 3.8 (3.5-5.1) mmol/L Chloride 107 (98-107) mmol/L Carbon Dioxide 21 L (22-30) mmol/L Anion Gap 4.2 L (5-15) MEQ/L BUN 25 H (9-20) mg/dL Creatinine 1.21 (0.66-1.25) mg/dL Estimated GFR > 60.0 ML/MIN Glucose 97 (74-106) mg/dL Calcium 6.3 L (8.4-10.2) mg/dL Magnesium 2.0 (1.6-2.3) mg/dL Total Bilirubin 0.20 (0.2-1.3) mg/dL AST 14 L (17-59) U/L ALT 8 (0-50) U/L Alkaline Phosphatase 54 (38-126) U/L Serum Total Protein 4.2 L (6.3-8.2) g/dL Albumin 2.1 L (3.5-5.0) g/dL Multi-Disciplinary Progress Notes: Multi-Disciplinary Progress Notes 11/09/21 16:43 OT Plan of Care Note by Juany Kc OT Eval OT Eval and Treat MD Order Start: 11/09/21 10:18 Freq: ONCE Status: Active Protocol: Created 11/09/21 10:18 EK (Rec: 11/09/21 10:18 [id number] [id number]) Document 11/09/21 16:19 KA (Rec: 11/09/21 16:41 KA [id number]) OT Assessment Pertinent Past Medical History PMH: PROSTATE CANCER (CHEMO PILLS DAILY), SELF CATH 2-3X/ DAY, STENT IN KIDNEYS, AND CAD BASELINE: PATIENT'S GRANDSON LIVES WITH HIM AND ASSISTS NEEDED. UP UNTIL APPROXIMATELY 3 WEEKS AGO, PATIENT IND WITH ALL ADLS, UTILIZING CANE INTERMITTENTLY DURING MOBILITY , WALKING OUT TO SHED, AND MOWING WITH ZERO TURN MOWER. HE STARTED CHEMO PILLS APPROXIMATELY 5 MONTHS AGO AND HAS SINCE LOST 70 POUNDS, INCREASED NAUSEA, DECREASED APPETITE, AND REPORTS DECREASE IN ENERGY LEVELS. SINCE COVID ONSET, PT REQUIRING ASSISTANCE FROM GRANDSON AND SON-IN-LAW FOR MOWING AND ASSIST WITH TRANSFERS FROM COMMODE. PT STATES THAT HE HAS ACCEPTED HIS FATE, AND WILL STOP TAKING CHEMO PILLS HE WANTS QUALITY OF LIFE FOR WHAT TIME HE HAS LEFT. HIS GOAL IS TO RETURN HOME AND BE IND WITH ADLS AND MOBILITY, "I DON'T WANT TO BE BED RIDDEN". Equipment at Home Prior to Admission Walker,Cane Comment BATHROOM SET UP: TUB/SHOWER COMBO, SHOWER CHAIR (DOES NOT USE), SUCTION CUP GRAB BAR, AND ADA HEIGHT TOILET SEAT. PATIENT REQUESTING RAISED TOILET SEAT WITH HANDLES. Date 11/09/21 Feeding WFL Grooming Impaired Comment IND WITH GROOMING TASKS WHILE IN SEATED POSITION DUE TO DECREASED ENERGY LEVELS. Bathing Impaired Comment UB: SBA LB: MIN ASSIST Dressing Impaired Comment UB: SBA LB: MIN ASSIST Toileting Impaired Comment SBA IADLS (If indicated) Homemaking,etc Impaired Bed Mobility WFL Toilet Transfers Impaired Comment MIN ASSIST (FROM LOW TOILET SEAT) Functional Transfers Impaired Comment CGA Functional Endurance PT TOLERATES APPROXIMATELY 5 MINUTES OF STANDING TASKS, AND TOLERATES APPROXIMATLEY 30 MINUTES OF DISCUSSION AND LIGHT ACTIVITY WHILE SEATED IN THE RECLINER WITH POSITION CHANGES. Cognition ALERT AND ORIENTED X 4 Other Objective Data NO REPORTED PAIN Adaptive Equipment/Durable Medical PATIENT WOULD BENEFIT FROM Equipment needed/recommended RAISED TOILET SEAT WITH HANDLES VS. BEDSIDE COMMODE. PATIENT MAY BENEFIT FROM BSC, HE COULD REMOVE THE CONTAINER AND PLACE OVER TOILET; AND USE A RAISED TOILET SEAT. THEN IF PATIENT'S STATUS DECLINES DUE TO NOT TAKING CHEMO PILLS, HE WOULD ALREADY HAVE A BSC. OT RECOMMENDS PT TO USE WALKER UPON RETURN TO HOME AND USE OF SHOWER SEAT. PT WILL RETURN HOME WITH 24/7 CARE FROM FAMILY. PATIENT REPORTS THAT HIS GRANDSON WILL BE ASSIST WITH ADLS INCLUDING BATHING TASKS NEEDED. Functional Problem List PATIENT PRESENTS WITH GENERALIZED WEAKNESS AND DECREASED ACTIVITY TOLERANCE LIMITING INDEPENDENCE WITH FUNCTIONAL TRANSFERS AND ADLS. Pain Limitations NO REPORTED PAIN LIMITATIONS Therapuetic Interventions ACTIVITY PACING AND ENERGY CONSERVATION STRATEGIES; A/E TRAINING; PULMONARY EXERCISES; ADLS; THERAPEUTIC EXERCISES Functional Goals of Treatment 1. PATIENT WILL DEMONSTRATE FUNCTIONAL TRANSFERS WITH USE OF FWW WITH MOD IND. 2. PATIENT ENGAGE IN ADLS WITH SBA. 3. PATIENT WILL INCORPORATE ACTIVITY PACING AND ENERGY CONSERVATION DURING ADL TASKS. OT Inpatient Plan of Care Date of Evaluation 11/09/21 Treatment Diagnosis COVID19, UTI, WEAKNESS Precaution/Orders as written EVAL AND TREAT Frequency/Duration 5X/WEEK Patient assessed for Rehab Services Yes Was notification received of nursing Yes assessment trigger Chart screen completed Yes Are referral orders warranted for Yes evaluation Is an intervention justified at this Yes time Comment OT TO FOLLOW UP APPROPRIATE Initialized on 11/09/21 16:43 - END OF NOTE 11/09/21 10:40 Case Management Note by Nola Quintana PATIENT GIVEN LIST OF HOSPICE PROVIDERS FOR REFERENCE WHEN HE DECIDES HE IS READY FOR THEIR ASSISTANCE Initialized on 11/09/21 10:40 - END OF NOTE Assessment/Plan (1) COVID-19 virus infection Current Visit: Yes Status: Acute Assessment & Plan: improving, continue remdesivir and dexamethasone, will d/c IV fluids and d/c srivastava. encourage movement. possibly home tomorrow or the next day. lives with his son and feels he will have help and be able to return home. recommended home health on discharge for PT Code(s): U07.1 - COVID-19 (2) UTI (urinary tract infection) Current Visit: Yes Status: Acute Qualifiers: Urinary tract infection type: acute cystitis Hematuria presence: with hematuria Qualified Code(s): N30.01 - Acute cystitis with hematuria Assessment & Plan: mixed nery on culture, improved clinically so will continue rocephin emperically in the event of covid pneumonia development etc Code(s): N39.0 - URINARY TRACT INFECTION, SITE NOT SPECIFIED (3) Acute on chronic renal insufficiency Current Visit: No Status: Acute Assessment & Plan: renal function looks good Code(s): N28.9 - DISORDER OF KIDNEY AND URETER, UNSPECIFIED; N18.9 - CHRONIC KIDNEY DISEASE, UNSPECIFIED
[2021-11-10] MEDS: Decadron 4 MG INJ IV SCH (09:27)
[2021-11-10] MEDS: FEOSOL 325 MG PO SCH (09:27)
[2021-11-10] MEDS: Lopressor 25MG Tab PO SCH (09:27)
[2021-11-10] MEDS: ZYLOPRIM 100 MG PO SCH (09:27)
[2021-11-10] MEDS: ROCEPHIN 1 Gm-D5w 50 ml Bag** 1 G/50 ML IVPB IV SCH (22:00)
[2021-11-10] MEDS: REMDESIVIR 100 MG in Sodium Chloride 100ML MINI-BAG PLUS 100 ML IV SCH (22:41)
[2021-11-11 05:58] LABS: Hematocrit 27.5 % (42-50); Hemoglobin 9.1 g/dL (12.5-18.0); Mean Cell Volume 91.1 fL (78-100); Mean Corpuscular Hemoglobin 30.1 pg (26-32); Mean Corpuscular Hgb Concent. 33.1 g/dL (32-36); Mean Platelet Volume 10.2 fL (7.5-11.0); Platelet Count 331 x10^3/uL (150-450); Red Blood Count 3.02 x10^6/uL (4.1-5.6); Red Cell Distribution Width 18.6 % (11.5-14.0); White Blood Count 4.5 x10^3/uL (4.0-10.5)
[2021-11-11 07:08] LABS: ALKALINE PHOSPHATASE 52 U/L (38-126); BLOOD UREA NITROGEN 24 mg/dL (9-20); CHLORIDE 107 mmol/L (98-107); Carbon Dioxide 23 mmol/L (22-30); Creatinine 1 1.13 mg/dL (0.66-1.25); EST GLOMERULAR FILTRATION RATE > 60.0 ML/MIN; Glucose 88 mg/dL (74-106); SGOT/AST 15 U/L (17-59); SGPT/ALT 9 U/L (0-50); SODIUM 132 mmol/L (137-145); Total Protein 4.1 g/dL (6.3-8.2)
[2021-11-11 07:10] LABS: Potassium 3.9 mmol/L (3.5-5.1)
[2021-11-11 07:16] LABS: ANION GAP 5.9 MEQ/L (5-15)
[2021-11-11 09:08] LABS: BAND 1 % (0.0-2.0); Basophil 1 % (0.0-1.0); Eosinophil 12 % (0.00-3.0); Lymphocytes 23 % (24-44); Monocyte 4 % (0.0-12.0); Total Cells Counted 100
[2021-11-11 09:10] LABS: Hypochromia 1+; Platelet Estimate NORMAL (NORMAL); Poikilocytosis 1+
[2021-11-11 09:11] LABS: ANISOCYTOSIS 1+; Basophilic Stippling 2+
[2021-11-11] MEDS: Decadron 4 MG INJ IV SCH (09:50)
[2021-11-11] MEDS: Lopressor 25MG Tab PO SCH (09:53)
[2021-11-11] MEDS: FEOSOL 325 MG PO SCH (09:53)
[2021-11-11] MEDS: ZYLOPRIM 100 MG PO SCH (09:54)
--- NOTE | 2021-11-11 10:15 | PCM.DS ---
Discharge Summary Date of Admission: 11/09/21 08:15 Admitting Physician: GIOVANNI ROBERTSON Primary Care Provider: BUNNY RICHARDSON ELIZABETH Allergies Allergies furosemide Allergy (Severe, Verified 05/20/20 09:26) Hives amoxicillin Allergy (Unknown, Verified 05/20/20 02:00) doxycycline Allergy (Unknown, Verified 05/20/20 02:00) Penicillins Allergy (Unknown, Verified 11/07/21 21:13) morphine Adverse Reaction (Mild, Verified 05/20/20 02:00) hallucinating simvastatin [From Zocor] Adverse Reaction (Mild, Verified 05/20/20 02:00) muscle pain muscle pain pravastatin Adverse Reaction (Verified 05/20/20 02:00) muscle pain muscle pain Hospital Summary - Hospital Course Hospital Course: patient admitted with weakness, cough, covid +. treated with remdesivir and steroids, supportive care. has been on room air, strength is improved. he will return to home and son will care for him, he is ok with home health. - Vitals & Intake/Output Vital Signs: Vital Signs Temperature 96.0 F 11/11/21 08:00 Pulse Rate 62 11/11/21 08:00 Respiratory Rate 18 11/11/21 08:00 Blood Pressure 146/69 11/11/21 08:00 O2 Sat by Pulse Oximetry 94 L 11/11/21 08:00 Intake & Output: Intake & Output 11/08/21 11/09/21 11/10/21 11/11/21 11:59 11:59 11:59 11:59 Intake Total 240 5336 2361 540 Output Total 520 1325 1700 1125 Balance -280 4011 661 -585 Weight 68.9 kg - Lab Result Diagrams: 11/11/21 06:02 11/11/21 06:02 Lab Results-Last 24 Hrs: Lab Results-Last 24 Hours 11/11/21 11/11/21 Range/Units 06:02 06:02 WBC 4.5 (4.0-10.5) x10^3/uL RBC 3.02 L (4.1-5.6) x10^6/uL Hgb 9.1 L (12.5-18.0) g/dL Hct 27.5 L (42-50) % MCV 91.1 (78-100) fL MCH 30.1 (26-32) pg MCHC 33.1 (32-36) g/dL RDW 18.6 H (11.5-14.0) % Plt Count 331 (150-450) x10^3/uL MPV 10.2 (7.5-11.0) fL Segmented Neutrophils 59 (36.-66.) % Band Neutrophils 1 (0.0-2.0) % Lymphocytes (Manual) 23 L (24-44) % Monocytes (Manual) 4 (0.0-12.0) % Eosinophils (Manual) 12 H (0.00-3.0) % Basophils (Manual) 1 (0.0-1.0) % Hypochromia 1+ Platelet Estimate NORMAL (NORMAL) RBC Morphology ABNORMAL Poikilocytosis 1+ Basophilic Stippling 2+ Anisocytosis 1+ Sodium 132 L (137-145) mmol/L Potassium 3.9 (3.5-5.1) mmol/L Chloride 107 (98-107) mmol/L Carbon Dioxide 23 (22-30) mmol/L Anion Gap 5.9 (5-15) MEQ/L BUN 24 H (9-20) mg/dL Creatinine 1.13 (0.66-1.25) mg/dL Estimated GFR > 60.0 ML/MIN Glucose 88 (74-106) mg/dL Calcium 7.0 L (8.4-10.2) mg/dL Total Bilirubin 0.20 (0.2-1.3) mg/dL AST 15 L (17-59) U/L ALT 9 (0-50) U/L Alkaline Phosphatase 52 (38-126) U/L Serum Total Protein 4.1 L (6.3-8.2) g/dL Albumin 2.0 L (3.5-5.0) g/dL Micro Results-Entire Visit: Microbiology 11/07/21 23:37 Urine Culture - Final Urine, Void MIXED DAYSI; 3 OR MORE TYPES. NO PREDOMINANT ORGANISM. NO FURTHER WORKUP. PLEASE RESUBMIT IF CLINICALLY INDICATED. 11/07/21 21:55 Blood Culture - Preliminary Blood NO GROWTH TO DATE 11/07/21 21:55 Blood Culture - Preliminary Blood NO GROWTH TO DATE - Procedures and Test Procedures and Tests throughout Hospitalization: Therapy Orders & Screens 11/08/21 03:30 OT Screen per Nursing Assess ONCE Comment: Protocol Order Physician Instructions: Greater than 3 points order OT Admission Screening Reason For Exam: Triggered on Admission Diagnosis: COVID19, UTI, weakness Open Wound/Cellutlitis/Pressure Ulcers: No Acute Fx/ORIF/Change in wt bearing status: No Severe MUSCULOSKELETAL pain: No ADL Dysfunction: Yes Acute CVA w/Hemiparesis/Hemiplegia: No Decreased Functional Mobility/Strength: Yes Sprain/Strain: No Acute Post-op Mobility Dysfunction: No Total Points: 4 PT Screen per Nursing Assess ONCE Comment: Protocol Order Physician Instructions: Greater than 3 points order PT Admission Screenin Reason For Exam: Triggered on Admission Diagnosis: COVID19, UTI, weakness Open Wound/Cellutlitis/Pressure Ulcers: No Acute Fx/ORIF/Change in wt bearing status: No Severe MUSCULOSKELETAL pain: No ADL Dysfunction: Yes Acute CVA w/Hemiparesis/Hemiplegia: No Decreased Functional Mobility/Strength: Yes Sprain/Strain: No Acute Post-op Mobility Dysfunction: No Total Points: 4 11/08/21 04:00 EKG REPEAT IN AM Comment: 11/08/21 06:33 Respiratory Therapy Assessment DAILY Comment: Diagnosis: COVID19, UTI, weakness 11/09/21 10:18 OT Eval and Treat (MD Order) ONCE Comment: Consulting Provider: Physician Instructions: Reason For Exam: Diagnosis: COVID19, UTI, weakness Discharge Exam General Appearance: no apparent distress Respiratory Exam: rhonchi, No respiratory distress, No accessory muscle use Cardiovascular Exam: regular rate/rhythm, normal heart sounds Gastrointestinal/Abdomen Exam: soft, No tenderness, No mass Extremity Exam: normal inspection, normal range of motion Skin Exam: normal color, warm, dry Final Diagnosis/Problem List - Final Discharge Diagnosis/Problem (1) COVID-19 virus infection Current Visit: Yes Status: Acute Assessment & Plan: improved Code(s): U07.1 - COVID-19 (2) UTI (urinary tract infection) Current Visit: Yes Status: Acute Assessment & Plan: ruled out with negative culture, no further tx Code(s): N39.0 - URINARY TRACT INFECTION, SITE NOT SPECIFIED (3) Acute on chronic renal insufficiency Current Visit: No Status: Acute Assessment & Plan: renal function stable Code(s): N28.9 - DISORDER OF KIDNEY AND URETER, UNSPECIFIED; N18.9 - CHRONIC KIDNEY DISEASE, UNSPECIFIED - Discharge Disposition: Home, Self-Care Condition: Good Prescriptions: New Benzonatate 200 mg PO TID PRN PRN #20 cap PRN Reason: Cough Ondansetron ODT 4 MG [Zofran Odt 4 mg] 4 mg PO Q6HPRN PRN #30 tab PRN Reason: Nausea Continue Metoprolol Tartrate 25 mg [Lopressor 25MG Tab] 25 mg PO DAILY Allopurinol 100 mg [Zyloprim 100 mg] 100 mg PO DAILY Apalutamide [Erleada] 60 mg PO QID Ferrous Sulfate [Iron] 325 mg PO DAILY Follow up with: BUNNY RICHARDSON MD [Primary Care Provider] - 1 Week
[2021-11-11 13:23] VITALS: BP 136/70; PULSE 59; O2SAT 95
== END 2021-11-11 13:18 | disposition home or self-care (01) | DRG 178 ==
LOC: ED 20:58 → MED SURG 11-08 02:44 → OBSVTOIN 11-09 08:15
PROVIDERS: ADMIT Family Medicine; ATTEND Family Medicine
DX: U07.1 COVID-19 (principal); N39.0 Urinary tract infection, site not specified; N28.9 Disorder of kidney and ureter, unspecified; I12.9 Hypertensive chronic kidney disease with stage 1 through stage 4 chronic kidney disease, or unspecified chronic kidney disease; N18.31 Chronic kidney disease, stage 3a; I25.10 Atherosclerotic heart disease of native coronary artery without angina pectoris; D64.9 Anemia, unspecified; R53.1 Weakness; Z79.899 Other long term (current) drug therapy; Z20.828 Contact with and (suspected) exposure to other viral communicable diseases; Z85.46 Personal history of malignant neoplasm of prostate
CPT/HCPCS: 0241U; 36000; 36415; 51702; 71045; 80048; 80053; 81015; 83605; 83735; 83880; 84484; 85025; 87040; 87086; 93005; 93041; 94640; 94760; 94762; 96360; 96365; 96367; 96374; 96375; 99284; J0248; J0696; J1100; J2550; J2930; A9270-GY; G0378